=== PATIENT | female | born 1955 | race Caucasian/White ===

== ENCOUNTER 2020-01-28 07:21 | Emergency (ER) | payer OTHER, SELFPAY ==
[2020-01-28 07:31] VITALS: BP 131/113; PULSE 91; RESP 18; TEMP 35.9; O2SAT 98
[2020-01-28 08:23] LABS: Basophils Absolute Auto 0.1 K/mm3 (0.0-0.1); Basophils Percent Auto 0.6 % (0.2-1.2); Eosinophils Absolute Auto 0.4 K/mm3 (0-0.3); Eosinophils Percent Auto 4.8 % (0-4.4); Hematocrit 38.3 % (37.0-47.0); Hemoglobin 12.5 g/dL (12.0-15.0); Immature Granulocyte Absolute 0.06 K/mm3 (0.00-0.031); Immature Granulocyte Percent A 0.7 % (0-0.5); Lymphocytes Absolute Auto 2.38 K/mm3 (0.9-3.2); Lymphocytes Percent Auto 29.5 % (18.3-44.2); Mean Corpuscular HGB Conc 32.6 g/dl (32-36); Mean Corpuscular Hemoglobin 30.5 pg (26-34); Mean Corpuscular Volume 93.4 fl (80-100); Mean Platelet Volume 9.8 fl (7.4-10.4); Monocytes Absolute Auto 1.2 K/mm3 (0.1-0.6); Monocytes Percent Auto 14.9 % (2.6-8.5); Neutrophils Percent Auto 49.5 % (45.5-73.1); Platelet Count Result 337 k/mm3 (150-375); Red Cell Distribution Width 13.5 % (11.5-14.5); White Blood Count 8.1 K/mm3 (4.5-10.0)
[2020-01-28 08:34] LABS: Anion Gap 9 mmol/L (8-16); Blood Urea Nitrogen 14 mg/dL (7-17); Calcium 9.2 mg/dL (8.4-10.2); Carbon Dioxide 28 mmol/L (22-30); Chloride 102 mmol/L (98-107); Estimated CRCL calculation 86 ml/min; Estimated Glomerular Filt Rate > 60; Glucose 111 mg/dL (65-105); Potassium 3.6 mmol/L (3.4-5.0); Sodium 139 mmol/L (137-145)
[2020-01-28 09:12] VITALS: BP 136/94; PULSE 92; RESP 18; O2SAT 98
--- NOTE | 2020-01-28 09:29 | ED.GENADULT ---
HPI - General Adult General Chief complaint: Skin/Abscess/Foreign Body Stated complaint: Skin Issue Time Seen by Provider: 01/28/20 07:46 Source: patient Mode of arrival: ambulatory Limitations: no limitations History of Present Illness HPI narrative: 64-year-old with a history of hypertension here with complaints of drainage from the mid chest area. Patient states that she had a cyst on her chest wall for last several years however for the past few days it is been red and it burst on its own. She denies any fever or trauma. No other complaints expressed at this time Onset (ago): day(s) (1) Location: chest Severity: mild Pain Consistency: constant Related Data Allergies Allergy/AdvReac Type Severity Reaction Status Date / Time No Known Allergies Allergy Verified 01/02/20 13:14 Review of Systems Review of Systems: All systems reviewed & are unremarkable except as noted in HPI and below Eyes: Eyes: Reports as per HPI Cardiovascular: Cardiovascular: Reports no additional cardiovascular complaints Gastrointestinal: Gastrointestinal: Reports no additional gastrointestinal complaints Musculoskeletal: Musculoskeletal: Reports no additional musculoskeletal complaints Psychiatric: Psychiatric: Reports no additional psychiatric complaints PMFSH Past Medical History Medical History (Updated 01/28/20 @ 09:37 by Kenneth Soriano MD) Arthralgia of left knee Current nicotine use Essential (primary) hypertension Hyperlipidemia Type 2 diabetes mellitus without complications Family History Family History Father Hypertension Cerebrovascular accident Sibling Family history of malignant neoplasm of breast in first degree relative Other Family history of lung cancer Family history of lupus erythematosus Social History Social History Smoking status: Former smoker Tobacco type: cigarettes Second hand tobacco smoke exposure: Yes Smoking end date: 06/18/19 Additional smoking assessment comments: 2.5 ppd prior to quitting. 80 pack-year history Alcohol intake: current Additional living arrangements comments: Lives with in own home Gender identity (if verbalized by the patient): Female Exam Narrative: Exam Narrative: GENERAL: Well-appearing, well-nourished, and in no acute distress. HEAD: Normocephalic, atraumatic. EYES: PERRLA and EOMI. ENT: Nares clear, no rhinorrhea or epistaxis. Mucous membranes moist. NECK: Supple. CHEST: Clear to auscultation. No respiratory distress. ruptured cyst with thick drainage present in the mid chest about 4 cms in diameter , with erythematous skin and induration. HEART: Regular rate and rhythm. No murmur heard. Normal peripheral pulses. EXTREMITIES: Normal range of motion. No edema. SKIN: Warm, dry, no rash. NEURO: No focal deficits. Alert and oriented x3. PSYCH: Normal mood and affect. Course Reevaluation(s) Reevaluation #1: informed pt about her lab work , i advised her to take antibiotic as prescribed , follow with a Surgeon Vital Signs Vital signs: Vital Signs Temperature 35.9 C L 01/28/20 07:31 Pulse Rate 91 01/28/20 07:31 Respiratory Rate 18 01/28/20 07:31 Blood Pressure 131/113 H 01/28/20 07:31 Pulse Oximetry 98 01/28/20 07:31 Temperature 35.9 C L 01/28/20 07:31 Pulse Rate 92 01/28/20 09:12 Respiratory Rate 18 01/28/20 09:12 Blood Pressure 136/94 H 01/28/20 09:12 Pulse Oximetry 98 01/28/20 09:12 Procedures Other Procedure Procedure 1: Other Procedure: i have manually drained the sebaceous material from the cyst . Medical Decision Making Vital Signs Vital Signs: Vital Signs Temperature 35.9 C L 01/28/20 07:31 Pulse Rate 91 01/28/20 07:31 Respiratory Rate 18 01/28/20 07:31 Blood Pressure 131/113 H 01/28/20 07:31 Pulse Oximetry 98 01/28/20 07:31 Temperature 35.9
== END 2020-01-28 09:50 | disposition home or self-care (01) ==
PROVIDERS: Emergency Provider Family Medicine; PCP Family Medicine
DX: L02.213 Cutaneous abscess of chest wall (principal); I10 Essential (primary) hypertension; E78.5 Hyperlipidemia, unspecified; E11.9 Type 2 diabetes mellitus without complications; Z87.891 Personal history of nicotine dependence
CPT/HCPCS: 36415; 80048; 85025; 99283

== ENCOUNTER 2022-04-28 08:22 | Outpatient (CLI) | payer OTHER, SELFPAY ==
[2022-04-28 10:34] LABS: Kit Draw Collected
== END 2022-04-28 08:23 | disposition home or self-care (01) ==
LOC: ANHGOSHLAB 08:24
PROVIDERS: PCP Family Medicine; Visit Provider Nurse Practitioner Family
DX: E11.9 Type 2 diabetes mellitus without complications (principal); E78.5 Hyperlipidemia, unspecified; I10 Essential (primary) hypertension
CPT/HCPCS: 36415

== ENCOUNTER 2022-06-05 07:32 | Outpatient (CLI) | payer OTHER, SELFPAY ==
--- NOTE | ~2022-06-05 | MM_ITS ---
EXAMINATION: MM screening delroy BI w aparna HISTORY: Screening mammogram TECHNIQUE: Craniocaudal and mediolateral oblique 3-D tomosynthesis images were obtained and synthetic 2-D images were generated. CAD analysis was submitted and interpreted. COMPARISON: No prior mammogram is available for comparison at this institution. BREAST PARENCHYMAL COMPOSITION: There are scattered areas of fibroglandular density. FINDINGS: There is no evidence of suspicious mass, calcification, or architectural distortion to sugg est malignancy in either breast. There has been no suspicious interval change. IMPRESSION: 1. No mammographic evidence of malignancy. 2. Recommend routine screening mammography in one year. BI-RADS Category 1: Negative Reviewed, dictated and finalized at location A. ROASTER
--- NOTE | ~2022-06-05 | DEXA_ITS ---
Bone Density Report Name: DEEPAK KENDALL Age: 66 Sex: Female Ethnicity: White Date of : 1955 Indication: postmenopausal; screening for osteoporosis; prior fracture; Referring Provider: BENJAMIN RAMOS Study: Bone densitometry was performed. Exam Date: June 05, 2022 Accession number: [id number] Bone Density: Region BMD T-score Z-score Classification AP Spine(L1-L4) 0.970 -0.7 1.0 Normal Femoral Neck (Left) 0.762 -0.8 0.7 Normal Total Hip (Left) 0.959 0.1 1.4 Normal Femoral Neck (Right) 0.789 -0.5 1.0 Normal Total Hip (Right) 0.955 0.1 1.3 Normal Total Hip Mean 0.957 0.1 1.4 Normal World Health Organization criteria for BMD impression classify patients as: Normal (T-score at or above -1.0), Osteopenia (T-score between -1.0 and -2.5), or Osteoporosis (T-score at or below -2.5). 10-year Fracture Risk: FRAX not reported because: All T-scores for Spine Total, Hip Total, Femoral Neck at or above -1.0 Clinical Information Provided by Patient: Has had a low trauma fracture Patient maximum height was 66.5 Menopause Age: 57 No regular weight bearing exercise Does not regularly consume dairy products Drinks caffeinated beverages Onset of menses at age 14 Number of children 2 Impression: The patient has normal bone mass. The patient has risk factors, including: previous fracture. Discussion: BONE DENSITY IS ABOVE THE MINIMUM DESIRABLE LEVEL AT ALL SKELETAL SITES TESTED. This patient?s bone mineral density is above the minimum desirable level (T-score -1.0 or better) at all sites measured. The patient should follow a healthful lifestyle (good nutrition with adequate calcium and vitamin D, and appropriate weight-bearing exercise). Follow-Up: Consider repeating this study in 5 years or sooner if there is some new clinical indication. Reported by: MARSHA on 06/05/2022 7:58:00 AM. Reviewed, dictated and finalized at location Allison CUNHA
== END 2022-06-05 07:33 | disposition home or self-care (01) ==
LOC: ANHIMG 07:33
PROVIDERS: PCP Family Medicine; Visit Provider Nurse Practitioner Family
DX: Z12.31 Encounter for screening mammogram for malignant neoplasm of breast (principal); Z78.0 Asymptomatic menopausal state
CPT/HCPCS: 77063; 77067; 77080

== ENCOUNTER 2022-06-09 00:24 | Day surgery (SDC) | payer OTHER, SELFPAY ==
[2022-05-27 12:27] VITALS: BMI 30.9
--- NOTE | 2022-06-08 15:48 | WPDANESEPPF ---
Anes - Initial Pre Proc Eval Procedure: Operation Date: 06/09/22 09:00 Proposed Procedures p Colonoscopy - Naveen Van MD Date/Time: 06/08/22 15:48 Surgeon: Naveen Van MD Pre Op Diagnosis: other fecal abnormalities Patient Data Age: 66 Gender: F Height: 1.68 m Weight: 87 kg Allergies Allergy/AdvReac Type Severity Reaction Status Date / Time No Known Allergies Allergy Verified 06/09/22 07:42 Home Medications Medication Instructions Recorded Confirmed Type nebivolol 10 mg tablet (Bystolic) 5 mg PO DAILY 10/30/21 05/27/22 History triamterene 37.5 1 cap PO DAILY #90 caps 12/15/21 05/27/22 Rx mg-hydrochlorothiazide 25 mg capsule omeprazole 20 mg capsule,delayed 20 mg PO DAILY #90 caps 04/28/22 05/27/22 Rx release atorvastatin 40 mg tablet 40 mg PO QHS #90 tabs 05/14/22 05/27/22 Rx Patient hx anesthesia problems: none Family hx anesthesia problems: none Results Review: All pre-operative results and documents have been reviewed as part of the pre-operative evaluation. [facility] Past Medical History Medical History (Updated 05/14/22 @ 09:24 by Flakita Alonso NP) Arthralgia of left knee Elevated fasting glucose Essential (primary) hypertension GERD without esophagitis History of tobacco use 80 pack-year smoking hx Hyperlipidemia Type 2 diabetes mellitus without complications Family History Family History Father Hypertension Cerebrovascular accident Sibling Family history of malignant neoplasm of breast in first degree relative Other Family history of lung cancer Family history of lupus erythematosus Social History Social History (Updated 04/28/22 @ 07:50 by Valerie Soares CMA) Smoking packs per day: 2 Smoking cigarettes per day: 40.0 Years smoked: 40 Smoking pack-years: 80.00 Smoking status: Former smoker Tobacco type: cigarettes Second hand tobacco smoke exposure: Yes Smoking end date: 06/18/19 Additional smoking assessment comments: 2.5 ppd prior to quitting. 80 pack-year history Alcohol intake: current Alcohol use details: 2 drinks a day Lack of Transportation: No Lack of Food: Never True Current Housing: I Have Housing Concerned About Future Housing: No Difficulty Paying Gas/Electric Bills: No Difficulty Paying for Meds: No Currently Unemployed: No Education: High School Diploma/GED Difficulty w/ Childcare or Family Care: No Living arrangements: with family Additional living arrangements comments: Lives with in own home Gender identity (if verbalized by the patient): Female Spiritual care concerns: No Anes - Eval Final PreProcedure Day of Procedure 06/08/22 15:48 Patient weight: obese Heart: regular rate and rhythm Lungs: clear to auscultation Airway: Mallampati scale class II Neurological: alert and oriented Last oral intake: >/= 8 hours ASA classification: III Emergent: no Anesthetic plan: proceed Anesthesia type and monitoring: general GIVS and standard monitoring Results Review: All pre-operative results and documents have been reviewed as part of the pre-operative evaluation. Informed Consent: The patient's anesthetic plan and its attendant risks and benefits were discussed with the patient/family/POA. Questions were solicited and answers provided to the satisfaction of the patient/family/POA.
[2022-06-09 07:43] VITALS: BP 145/63; PULSE 74; RESP 19; TEMP 36.1; O2SAT 96
[2022-06-09] MEDS: LACTATED RINGERS 1,000 ML 150 ML IV CONT (07:58)
--- NOTE | 2022-06-09 08:42 | PM.HPGS ---
History of Present Illness History of Present Illness Consent: Risks, benefits, and alternatives have been discussed and questions answered. Patient agrees to proceed with procedure. Chief complaint: other fecal abnormalities Narrative: Crystal Waterman is a 66 year old female here for first colonoscopy, had + cologuard Review of Systems Constitutional: Constitutional: Denies headache(s) and Denies weakness Eyes: Eyes: Denies blurry vision ENT: Reports Normal hearing present, Denies headache(s) and Denies neck pain Cardiovascular: Cardiovascular: Denies chest pain and Denies dyspnea Respiratory: Respiratory: Denies dyspnea Gastrointestinal: Gastrointestinal: Reports no additional gastrointestinal complaints Genitourinary: Genitourinary: Denies dysuria Musculoskeletal: Musculoskeletal: Denies neck pain Integumentary/Breasts: Skin/Breast: Denies dry skin Neurologic: Reports Normal hearing present, Denies headache(s) and Denies weakness Psychiatric: Psychiatric: Denies anxiety Endocrine: Endocrine: Denies change in body appearance Hematologic/Lymphatic: Hematologic/Lymphatic: Denies easy bleeding Allergic/Immunologic: Allergic/Immunologic: Denies urticaria PMFSH Past Medical History Medical History (Updated 05/14/22 @ 09:24 by Flakita Alonso NP) Arthralgia of left knee Elevated fasting glucose Essential (primary) hypertension GERD without esophagitis History of tobacco use 80 pack-year smoking hx Hyperlipidemia Type 2 diabetes mellitus without complications Family History Family History Father Hypertension Cerebrovascular accident Sibling Family history of malignant neoplasm of breast in first degree relative Other Family history of lung cancer Family history of lupus erythematosus Social History Social History (Updated 04/28/22 @ 07:50 by Valerie Soares CMA) Smoking packs per day: 2 Smoking cigarettes per day: 40.0 Years smoked: 40 Smoking pack-years: 80.00 Smoking status: Former smoker Tobacco type: cigarettes Second hand tobacco smoke exposure: Yes Smoking end date: 06/18/19 Additional smoking assessment comments: 2.5 ppd prior to quitting. 80 pack-year history Alcohol intake: current Alcohol use details: 2 drinks a day Lack of Transportation: No Lack of Food: Never True Current Housing: I Have Housing Concerned About Future Housing: No Difficulty Paying Gas/Electric Bills: No Difficulty Paying for Meds: No Currently Unemployed: No Education: High School Diploma/GED Difficulty w/ Childcare or Family Care: No Living arrangements: with family Additional living arrangements comments: Lives with in own home Gender identity (if verbalized by the patient): Female Spiritual care concerns: No Meds Home Medications and Allergies Home Medications Medication Instructions Recorded Confirmed Type nebivolol 10 mg tablet (Bystolic) 5 mg PO DAILY 10/30/21 05/27/22 History triamterene 37.5 1 cap PO DAILY #90 caps 12/15/21 05/27/22 Rx mg-hydrochlorothiazide 25 mg capsule omeprazole 20 mg capsule,delayed 20 mg PO DAILY #90 caps 04/28/22 05/27/22 Rx release atorvastatin 40 mg tablet 40 mg PO QHS #90 tabs 05/14/22 05/27/22 Rx Allergies Allergy/AdvReac Type Severity Reaction Status Date / Time No Known Allergies Allergy Verified 06/09/22 07:42 Vital Signs Vital Signs - 24 hr 06/09/22 07:43 Temperature 96.9 F L Pulse Rate 74 Respiratory Rate 19 Blood Pressure 145/63 H Pulse Oximetry 96 Oxygen Delivery Room Air Exam Const: General: comfortable and no acute distress HENMT: Face/Nose/Sinus: Normal nares present Eyes: General: appearance normal, both eyes and all related structures Neck: Neck: no JVD Resp: Auscultation: clear to auscultation bilaterally Cardio: Rate: regular rate Rhythm: regular rhythm GI: Inspection: non-dis
[2022-06-09 08:59] VITALS: BP 82/41; PULSE 70; RESP 17; O2SAT 97
[2022-06-09 09:09] VITALS: BP 102/49; PULSE 64; RESP 22; O2SAT 100
[2022-06-09 09:19] VITALS: BP 127/59; PULSE 60; RESP 17; O2SAT 100
== END 2022-06-09 09:22 | disposition home or self-care (01) ==
PROVIDERS: PCP Family Medicine; Visit Provider Internal Medicine Gastroenterology
PROC: 0DJD8ZZ Inspection of Lower Intestinal Tract, Via Natural or Artificial Opening Endoscopic (ICD-10-PCS; CPT 45378; principal; 2022-06-09 09:00)
DX: R19.5 Other fecal abnormalities (principal); D12.2 Benign neoplasm of ascending colon; D12.5 Benign neoplasm of sigmoid colon; K57.30 Diverticulosis of large intestine without perforation or abscess without bleeding; K64.8 Other hemorrhoids; I10 Essential (primary) hypertension; K21.9 Gastro-esophageal reflux disease without esophagitis; E78.5 Hyperlipidemia, unspecified; E11.9 Type 2 diabetes mellitus without complications; Z87.891 Personal history of nicotine dependence; E66.9 Obesity, unspecified; Z68.30 Body mass index [BMI] 30.0-30.9, adult
CPT/HCPCS: 45385; 88305; J2704; J7120

== ENCOUNTER 2022-10-27 09:06 | Outpatient (CLI) | payer MEDICARE, SELFPAY ==
[2022-10-27 19:39] LABS: Basophils Absolute Auto 0.1 K/mm3 (0.0-0.1); Basophils Percent Auto 1.1 % (0.2-1.2); Eosinophils Absolute Auto 0.2 K/mm3 (0-0.3); Eosinophils Percent Auto 2.2 % (0-4.4); Hematocrit 39.1 % (37.0-47.0); Hemoglobin 12.7 g/dL (12.0-15.0); Immature Granulocyte Absolute 0.03 K/mm3 (0.00-0.031); Immature Granulocyte Percent A 0.4 % (0-0.5); Lymphocytes Absolute Auto 1.99 K/mm3 (0.9-3.2); Lymphocytes Percent Auto 27.4 % (18.3-44.2); Mean Corpuscular HGB Conc 32.5 g/dl (32-36); Mean Corpuscular Hemoglobin 32.2 pg (26-34); Mean Corpuscular Volume 99.2 fl (80-100); Mean Platelet Volume 9.1 fl (7.4-10.4); Monocytes Absolute Auto 0.9 K/mm3 (0.1-0.6); Neutrophils Absolute Auto 4.1 K/mm3 (1.3-6.7); Neutrophils Percent Auto 55.9 % (45.5-73.1); Platelet Count Result 351 k/mm3 (150-375); Red Blood Count 3.94 M/mm3 (4.2-5.4); Red Cell Distribution Width 13.9 % (11.5-14.5); White Blood Count 7.3 K/mm3 (4.5-10.0)
[2022-10-27 20:43] LABS: Alanine Aminotransferase 25 U/L (6-35); Albumin Level 4.2 g/dL (3.5-5.1); Alkaline Phosphatase 54 U/L (38-126); Anion Gap 2 mmol/L (8-16); Aspartate Amino Transferase 44 U/L (14-36); Bilirubin,Total 0.6 mg/dL (0.2-1.3); Blood Urea Nitrogen 12 mg/dL (7-17); Calcium 8.9 mg/dL (8.4-10.2); Carbon Dioxide 32 mmol/L (22-30); Chloride 100 mmol/L (98-107); Cholesterol 157 mg/dL (0-200); Estimated Glomerular Filt Rate > 60; Glucose 88 mg/dL (65-110); HDL Direct 56 mg/dL; Potassium 3.9 mmol/L (3.4-5.0); Sodium 134 mmol/L (137-145); Triglycerides 62 mg/dL (<150)
[2022-10-27 20:54] LABS: LDL Cholesterol Direct 76 mg/dL
[2022-10-27 21:23] LABS: Hemoglobin A1C 5.3 % (<5.7)
== END 2022-10-27 09:07 | disposition home or self-care (01) ==
LOC: ANHGOSHLAB 09:10
PROVIDERS: PCP Family Medicine; Visit Provider Nurse Practitioner Family
DX: E11.9 Type 2 diabetes mellitus without complications (principal); E78.5 Hyperlipidemia, unspecified; I10 Essential (primary) hypertension
CPT/HCPCS: 36415; 80053; 80061; 83036; 85025

== ENCOUNTER 2023-05-04 08:16 | Outpatient (CLI) | payer MEDICARE, SELFPAY ==
[2023-05-04 19:57] LABS: Alanine Aminotransferase 20 U/L (6-35); Albumin Level 4.4 g/dL (3.5-5.1); Alkaline Phosphatase 75 U/L (38-126); Anion Gap 10 mmol/L (8-16); Aspartate Amino Transferase 46 U/L (14-36); Basophils Absolute Auto 0.1 K/mm3 (0.0-0.1); Basophils Percent Auto 0.7 % (0.2-1.2); Bilirubin,Total 0.7 mg/dL (0.2-1.3); Blood Urea Nitrogen 6 mg/dL (7-17); Calcium 9.1 mg/dL (8.4-10.2); Carbon Dioxide 27 mmol/L (22-30); Chloride 95 mmol/L (98-107); Cholesterol 157 mg/dL (0-200); Eosinophils Absolute Auto 0.2 K/mm3 (0-0.3); Estimated Glomerular Filt Rate > 60; Glucose 85 mg/dL (65-110); HDL Direct 70 mg/dL; Hematocrit 40.6 % (37.0-47.0); Hemoglobin 13.3 g/dL (12.0-15.0); Immature Granulocyte Absolute 0.04 K/mm3 (0.00-0.031); Immature Granulocyte Percent A 0.5 % (0-0.5); Lymphocytes Absolute Auto 1.37 K/mm3 (0.9-3.2); Lymphocytes Percent Auto 15.9 % (18.3-44.2); Mean Corpuscular HGB Conc 32.8 g/dl (32-36); Mean Corpuscular Hemoglobin 31.5 pg (26-34); Mean Corpuscular Volume 96.2 fl (80-100); Monocytes Absolute Auto 0.8 K/mm3 (0.1-0.6); Monocytes Percent Auto 8.9 % (2.6-8.5); Neutrophils Absolute Auto 6.2 K/mm3 (1.3-6.7); Platelet Count Result 318 k/mm3 (150-375); Potassium 3.6 mmol/L (3.4-5.0); Red Blood Count 4.22 M/mm3 (4.2-5.4); Red Cell Distribution Width 14.2 % (11.5-14.5); Sodium 132 mmol/L (137-145); Triglycerides 98 mg/dL (<150); White Blood Count 8.6 K/mm3 (4.5-10.0)
[2023-05-04 20:13] LABS: LDL Cholesterol Direct 73 mg/dL
[2023-05-04 20:33] LABS: Hemoglobin A1C 5.5 % (<5.7)
[2023-05-07 23:57] LABS: Vitamin D 1,25 (OH)2 Total 20 pg/mL (18-72); Vitamin D2 1,25 (OH)2 <8 pg/mL; Vitamin D3 1,25 (OH)2 20 pg/mL
== END 2023-05-04 08:17 | disposition home or self-care (01) ==
LOC: ANHGOSHLAB 08:18
PROVIDERS: PCP Family Medicine; Visit Provider Nurse Practitioner Family
DX: E55.9 Vitamin D deficiency, unspecified (principal); I10 Essential (primary) hypertension; E11.9 Type 2 diabetes mellitus without complications
CPT/HCPCS: 36415; 80053; 80061; 82652; 83036; 84443; 85025

== ENCOUNTER 2023-07-19 07:52 | Outpatient (CLI) | payer MEDICARE, SELFPAY ==
--- NOTE | ~2023-07-19 | MM_ITS ---
EXAMINATION: MM screening delroy BI w aparna HISTORY: Screening TECHNIQUE: Craniocaudal and mediolateral oblique 3-D tomosynthesis images were obtained and synthetic 2-D images were generated. CAD analysis was submitted and interpreted. COMPARISON: 06/05/2022 BREAST PARENCHYMAL COMPOSITION: There are scattered areas of fibroglandular density. FINDINGS: There is no evidence of suspicious mass, calcification, or architectural distortion to sugg est malignancy in either breast. There has been no suspicious interval change. IMPRESSION: 1. No mammographic evidence of malignancy. 2. Recommend routine screening mammography in one year. BI-RADS Category 1: Negative Reviewed, dictated and finalized at location A.
== END 2023-07-19 07:53 | disposition home or self-care (01) ==
LOC: ANHIMG 07:55
PROVIDERS: PCP Family Medicine; Visit Provider Nurse Practitioner Family
DX: Z12.31 Encounter for screening mammogram for malignant neoplasm of breast (principal)
CPT/HCPCS: 77063; 77067

== ENCOUNTER 2024-01-05 09:43 | Observation (INO) | payer MEDICARE, SELFPAY ==
--- NOTE | ~2024-01-05 | XR_ITS ---
EXAMINATION: XR chest 2V DATE: 01/05/2024 10:27 INDICATION: Chest pain. TECHNIQUE: Frontal and lateral views of the chest were obtained. COMPARISON: None. FINDINGS: There is mild atelectasis at left lung base. No pleural effusion or pneumothorax. The heart size is normal. IMPRESSION: 1. Mild atelectasis at left lung base. Reviewed, dictated and finalized at location A.
--- NOTE | ~2024-01-05 | CT_ITS ---
EXAMINATION: CTA chest PE protocol DATE: 01/05/2024 11:28 INDICATION: Chest pain, dyspnea and elevated d-dimer. TECHNIQUE: Computed tomography (CT) pulmonary angiogram of the chest was performed with 100 mL Omnipa que-350 intravenous contrast. Additional 3D reconstructions utilizing coronal maximum intensity proje ction (MIP) were performed. Automated exposure control and iterative reconstruction technique were em ployed. The dose-length product was 383.68 mGy-cm. COMPARISON: None FINDINGS: No pulmonary embolism. Mild emphysema. 6 mm pleural-based nodule in the right lower lobe with eccentr ic calcification. No pneumonia, pulmonary edema or pleural effusion. Heart size is normal. Minimal at herosclerotic coronary artery calcific lesion. No pericardial effusion. Thoracic aorta is normal in c aliber with no dissection. No pathologically enlarged thoracic lymphadenopathy. There is a large thic k-walled fluid collection measuring 6.8 x 5.7 x 7.6 cm which appears to arise from the tail of the pa ncreas and exerts mass effect upon the inferior aspect of the body the stomach. There is small amount of surrounding inflammatory stranding. There is infiltrating soft tissue density extending between t he tail of the pancreas and the left adrenal gland suspicious for primary pancreatic adenocarcinoma. There are eccentric filling defects within the splenic artery which suggests local invasion. There ar e multiple scattered hypodense hepatic masses with poorly defined margins, the largest measuring up t o 2.5 cm in maximal diameter which are suspicious for metastatic disease. IMPRESSION: 1. Mild emphysema. No pulmonary embolism or other acute cardiopulmonary disease. 2. Multiple ill-defined hypodense hepatic masses which are concerning for metastatic disease, potenti ally related to a pancreatic primary with infiltrating soft tissue density extending between the tail of the pancreas and the left adrenal gland and possible direct invasion into the splenic artery. Alt ernatively the change of the pancreas could be related to pancreatitis with liver lesions related to other nonvisualized primary such as a colon cancer. Consider further evaluation with pancreatic neymar col CT of the abdomen and pelvis and ultrasound-guided liver biopsy. 3. Mild inflammatory stranding surrounding a 7.6 cm loculated fluid collection which appears to arise from the tail of the pancreas raising suspicion for acute interstitial pancreatitis with secondary a bscess, walled off necrosis or pseudocyst. Correlate for history of pancreatitis. Reviewed, dictated and finalized at location B. IMPRESSION: 1. Mild emphysema. No pulmonary embolism or other acute cardiopulmonary disease . 2. Multiple ill-defined hypodense hepatic masses which are concerning for metas tatic disease, potentially related to a pancreatic primary with infiltrating so ft tissue density extending between the tail of the pancreas and the left adren al gland and possible direct invasion into the splenic artery. Alternatively th e change of the pancreas could be related to pancreatitis with liver lesions re lated to other nonvisualized primary such as a colon cancer. Consider further e valuation with pancreatic protocol CT of the abdomen and pelvis and ultrasound- guided liver biopsy. 3. Mild inflammatory stranding surrounding a 7.6 cm loculated fluid collection which appears to arise from the tail of the pancreas raising suspicion for acut e interstitial pancreatitis with secondary abscess, walled off necrosis or pseu docyst. Correlate for history of pancreatitis.
--- NOTE | ~2024-01-05 | CT_ITS ---
EXAMINATION: CT abdomen pelvis wo/w con DATE: 01/05/2024 12:40 INDICATION: Pancreatic mass. TECHNIQUE: Computed tomography (CT) of the abdomen and pelvis was performed without and with 100 mL O mnipaque 350 intravenous contrast. Automated exposure control and iterative reconstruction technique were employed. The dose-length product was 1396.15 mGy-cm. COMPARISON: Chest CT 01/05/2024 FINDINGS: The visualized portions of lung bases demonstrate minimal atelectasis. There is mild emphys dylon. No pleural effusion. The heart size is normal. No pericardial effusion. There are greater than 2 0 masses in the liver measuring up to 2.4 cm. The gallbladder and spleen are normal. There is a thick -walled cystic mass involving the tail of the pancreas and abutting the left adrenal gland and stomac h measuring 8.2 x 7.5 cm. There is a 10 mm mass in left adrenal gland. Right adrenal gland is normal. The kidneys are normal. There is diverticulosis of the colon without evidence of diverticulitis. The appendix is normal. 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 The re is severe lower lumbar spondylosis. IMPRESSION: 1. Liver masses, consistent with metastatic disease. Ultrasound-guided core needle biopsy is recommen ded. 2. Cystic mass of the tail of the pancreas. This finding may be primary malignancy or chronic necroti c pancreatitis with walled off necrosis. 3. 10 mm left adrenal mass, which may be an adenoma or metastatic disease. Reviewed, dictated and finalized at location A. IMPRESSION: 1. Liver masses, consistent with metastatic disease. Ultrasound-guided core nee dle biopsy is recommended. 2. Cystic mass of the tail of the pancreas. This finding may be primary maligna ncy or chronic necrotic pancreatitis with walled off necrosis. 3. 10 mm left adrenal mass, which may be an adenoma or metastatic disease.
--- NOTE | ~2024-01-05 | US_ITS ---
EXAMINATION: US biopsy liver DATE: 01/05/2024 15:33 INDICATION: Liver mass. TECHNIQUE: The procedure including the risks, benefits, and alternatives was discussed with the patie nt. Risks discussed included bleeding and infection. The patient understood the risks and agreed to p roceed. The skin overlying the right hepatic lobe was prepped and draped in usual sterile fashion. A nesthetic was administered with 1% lidocaine subcutaneously. An 18 gauge core biopsy needle was then used to obtain 6 core biopsy specimens under continuous sonographic guidance. The entry site was goyo aned and dressed. There were no immediate complications. FINDINGS: Ultrasound images demonstrate the needle in small hypoechoic masses in right hepatic lobe. IMPRESSION: 1. Ultrasound-guided core needle biopsy of small hypoechoic masses in right hepatic lobe. Reviewed, dictated and finalized at location A. IMPRESSION: 1. Ultrasound-guided core needle biopsy of small hypoechoic masses in right hep atic lobe.
[2024-01-05 09:50] VITALS: BP 151/79; PULSE 78; RESP 16; O2SAT 99
--- NOTE | 2024-01-05 09:53 | ECG_ITS ---
Test Date: 2024-01-05 10:06:04 Measurements Intervals [place] Rate: 86 P: 51 KS: 159 QRS: 24 QRSD: 90 T: 43 QT: 361 QTc: 433 Interpretive Statements SINUS RHYTHM LEFT VENTRICULAR HYPERTROPHY BASELINE ARTIFACT- I, II, III, AVR, AVL, AVF, V1-V6 BORDERLINE ECG No previous ECG available for comparison Electronically Signed On 01-05-2024 10:21:28 CDT by Sanchez Murcia D.O.
--- NOTE | 2024-01-05 10:06 | ED.SOB ---
HPI - SOB/Dyspnea General Chief Complaint: Shortness of Breath/Dyspnea <Jamaal Zuñiga PA-C - Last Filed: 01/05/24 14:11> Stated Complaint: left breast pain <Jamaal Zuñiga PA-C - Last Filed: 01/05/24 14:11> Time Seen by Provider: 01/05/24 10:05 <Jamaal Zuñiga PA-C - Last Filed: 01/05/24 14:11> Focused HPI: this is a 68-year-old female with PMH of HLD, history of tobacco use, T2 dm who presents to the ED for chief complaint of chest pain intermittent for the past 8 weeks. States that initially she thought she had pulled a muscle but lately she has had increased pain to the left and right side of the chest. States that the pain is worse with certain movements and feels like it is fine with perfectly still. Endorses associated dyspnea as well. Denies recent illness, fevers, chills, cough, abdominal pain, nausea, vomiting, syncope, numbness, weakness, leg swelling, palpitations, back pain, recent hospitalization. no VTE Hx GENERAL: Well-appearing, well-nourished, and in no acute distress. HEAD: Normocephalic, atraumatic. CHEST: Clear to auscultation. No respiratory distress. HEART: Regular rate and rhythm. NEURO: Alert and oriented x3. Patient screened in triage and initial orders placed. Additional care and disposition to be based upon diagnostic testing and treatment. <NIGEL Suarez Last Filed: 01/05/24 14:11> Related Data Home Medications: Home Medications Medication Instructions Recorded Confirmed cholecalciferol (vitamin D3) 50 50 mcg PO DAILY 09/16/23 01/05/24 mcg (2,000 unit) capsule <NIGEL Suarez Last Filed: 01/05/24 14:11> Allergies/Adverse Reactions: Allergies Allergy/AdvReac Type Severity Reaction Status Date / Time No Known Allergies Allergy Verified 01/05/24 15:49 <NIGEL Suarez Last Filed: 01/05/24 14:11> Review of Systems Review of Systems: All systems as dictated in HPI <NIGEL Suarez Last Filed: 01/05/24 14:11> [facility] Past Medical History Medical History: Medical History (Updated 01/05/24 @ 14:42 by Renetta Gurrola PA-C) Arthritis Elevated fasting glucose Essential (primary) hypertension GERD without esophagitis History of tobacco use 80 pack-year smoking history Hyperlipidemia Type 2 diabetes mellitus without complications Vitamin D deficiency <Jamaal Zuñiga PA-C - Last Filed: 01/05/24 14:11> Surgical History Surgical History: Surgical History (Updated 01/05/24 @ 14:36 by Renetta Gurrola PA-C) History of colonoscopy with polypectomy (05/2022) Diverticulosis, benign colon polyp, internal hemorrhoids. History of dilation and curettage History of epidermal inclusion cyst excision History of tonsillectomy History of tubal ligation <Jamaal Zuñiga PA-C - Last Filed: 01/05/24 14:11> Family History Family History: Family History (Updated 01/05/24 @ 16:00 by Stephanie Leal RN) Father Alcoholism Depression Hypertension Cerebrovascular accident Sibling Family history of malignant neoplasm of breast in first degree relative Mother Thyroid condition Family history of lung cancer Other Family history of lupus erythematosus <Jamaal Zuñiga PA-C - Last Filed: 01/05/24 14:11> Social History Social History: Social History (Updated 01/05/24 @ 14:37 by Renetta Gurrola PA-C) Social History: Surrogate medical decision maker: Del Waterman, spouse. Code status: Full code. Smoking packs per day: 2 Smoking cigarettes per day: 40.0 Years smoked: 40 Smoking pack-years: 80.00 Smoking status: Former smoker Second hand tobacco smoke exposure: Yes Additional smoking assessment comments: 2.5 ppd prior to quitting. 80 pack-year history Alcohol intake: current Drinks per week: 15 Alcohol use details: 2 drinks a day Substance use: never Other substance usage details: does not drink more than 3 whiskey shots a day Do You Feel Safe in your H
[2024-01-05 10:08] LABS: Basophils Absolute Auto 0.1 K/mm3 (0.0-0.1); Basophils Percent Auto 0.7 % (0.2-1.2); Eosinophils Absolute Auto 0.3 K/mm3 (0-0.3); Eosinophils Percent Auto 2.2 % (0-4.4); Hematocrit 40.8 % (37.0-47.0); Hemoglobin 13.7 g/dL (12.0-15.0); Immature Granulocyte Absolute 0.04 K/mm3 (0.00-0.031); Immature Granulocyte Percent A 0.3 % (0-0.5); Lymphocytes Absolute Auto 1.72 K/mm3 (0.9-3.2); Lymphocytes Percent Auto 14.5 % (18.3-44.2); Mean Corpuscular HGB Conc 33.6 g/dl (32-36); Mean Corpuscular Hemoglobin 30.3 pg (26-34); Mean Corpuscular Volume 90.3 fl (80-100); Mean Platelet Volume 8.7 fl (7.4-10.4); Monocytes Absolute Auto 1.7 K/mm3 (0.1-0.6); Monocytes Percent Auto 14.2 % (2.6-8.5); Neutrophils Absolute Auto 8.1 K/mm3 (1.3-6.7); Neutrophils Percent Auto 68.1 % (45.5-73.1); Platelet Count Result 327 k/mm3 (150-375); Red Blood Count 4.52 M/mm3 (4.2-5.4); Red Cell Distribution Width 13.8 % (11.5-14.5); White Blood Count 11.9 K/mm3 (4.5-10.0)
[2024-01-05 10:29] LABS: Troponin I < 0.012 ng/mL (0.000-0.034)
[2024-01-05 10:30] LABS: INR 1.1; Prothrombin Time 14.4 Seconds (11.1-14.7)
[2024-01-05 10:31] LABS: Partial Thromboplastin Time 23.2 Seconds (22.3-36.8)
[2024-01-05 10:40] LABS: Alanine Aminotransferase 24 U/L (6-35); Albumin Level 4.9 g/dL (3.5-5.1); Alkaline Phosphatase 159 U/L (38-126); Anion Gap 12 mmol/L (4-12); Aspartate Amino Transferase 39 U/L (14-36); Bilirubin,Total 1.1 mg/dL (0.2-1.3); Blood Urea Nitrogen 9 mg/dL (7-17); Calcium 9.8 mg/dL (8.4-10.2); Carbon Dioxide 30 mmol/L (22-30); Chloride 85 mmol/L (98-107); Estimated CRCL calculation 85 ml/min; Estimated Glomerular Filt Rate > 60; Glucose 105 mg/dL (65-110); Potassium 3.9 mmol/L (3.4-5.0); Sodium 127 mmol/L (137-145)
[2024-01-05 10:41] LABS: Influenza A QL RT-PCR Negative (Negative); Influenza B QL RT-PCR Negative (Negative); RSV RNA, RT-PCR Negative (Negative); SARS-CoV-2 RNA PCR Negative (Negative)
[2024-01-05 10:58] LABS: D Dimer > 20.00 ug/mL (<0.48)
[2024-01-05 11:03] VITALS: BP 132/77; PULSE 82; RESP 17; O2SAT 100
[2024-01-05 12:12] LABS: Lipase 63 U/L (23-300)
[2024-01-05 13:54] VITALS: BP 139/84; PULSE 85; RESP 14; TEMP 36.9; O2SAT 98
--- NOTE | 2024-01-05 14:30 | PM.IMHP ---
H&P: HPI History of Present Illness Date/Time: 01/05/24 16:00 Chief Complaint: Chest and abdominal pain. Narrative: This is a very pleasant 68-year-old female with hypertension hyperlipidemia, prediabetes, diverticulitis, and gastroesophageal reflux disease who presented to the emergency department via private vehicle for evaluation of chest and abdominal pain. The patient provides the following history. For couple of months she has had intermittent left mid and upper quadrant which she describes as sharp and shooting in nature. Initially she attributed her symptoms to diverticulitis and tried to adjust her diet without much relief. As time has gone on she has developed pain up into the lower chest and across to the right side of the abdomen as well. She has not been taking anything for the pain because she does not like to take medications and it has been tolerable. Her appetite has not been great however she denies nausea and vomiting. She has lost about 25 lb but that has been over the last 2 years which she attributes to the fact that she is constantly on the go caring for her ill . She has not had diarrhea and in fact reports having constipation since having a colonoscopy in spring 2022. She denies cold and flu symptoms, fever, chills, pleuritic pain, edema, calf pain, abdominal pain, nausea, vomiting, diarrhea, and dysuria. No history of pancreatitis, gallbladder disease, pulmonary embolism, or peptic ulcers. In the ED: Vital signs were stable on arrival. Labs were significant for a WBC count of 11.9, D-dimer greater than 20, sodium 127, chloride 85, creatinine 0.60, AST 39, ALT 159, troponin less than 0.012. She tested negative for influenza, RSV, and COVID. Chest x-ray showed mild atelectasis at the left lung base. Chest CTA was negative for pulmonary embolism or acute cardiopulmonary disease but showed mild emphysema, ill-defined hepatic masses, and a 7.6 cm loculated fluid collection which appears to arise from the tail of the pancreas. Subsequent CT of the abdomen pelvis showed multiple liver masses consistent with metastatic disease, a cystic mass of the tail of the pancreas, and 10 mm left adrenal mass. She is being admitted in this setting for liver biopsy. Review of Systems Review of Systems: 12 systems were reviewed and are negative except for as per HPI. [facility] Past Medical History Medical History Arthritis Elevated fasting glucose Essential (primary) hypertension GERD without esophagitis History of tobacco use 80 pack-year smoking history Hyperlipidemia Type 2 diabetes mellitus without complications Vitamin D deficiency Surgical History Surgical History History of colonoscopy with polypectomy (05/2022) Diverticulosis, benign colon polyp, internal hemorrhoids. History of dilation and curettage History of epidermal inclusion cyst excision History of tonsillectomy History of tubal ligation Family History Family History Father Alcoholism Depression Hypertension Cerebrovascular accident Sibling Family history of malignant neoplasm of breast in first degree relative Mother Thyroid condition Family history of lung cancer Other Family history of lupus erythematosus Social History Social History Social History: Surrogate medical decision maker: Del Waterman, spouse. Code status: Full code. Smoking packs per day: 2 Smoking cigarettes per day: 40.0 Years smoked: 40 Smoking pack-years: 80.00 Smoking status: Former smoker Second hand tobacco smoke exposure: Yes Additional smoking assessment comments: 2.5 ppd prior to quitting. 80 pack-year history Alcohol intake: current Drinks per week: 15 Alcohol use details: 2 drinks a day Substance use: never Oth
--- NOTE | 2024-01-05 14:35 | ADMGEN ---
This patient, Crystal Waterman, was admitted to Medical Room 346-01. Patient/family oriented to hospital policies and general routines including ID bracelet, bed and alarms, visiting hours, pain management, procedures, bathroom and other care routines, personal items, smoking policy, room service/diet, and visiting hours. Information on how to activate the Rapid Response Team has been discussed. Patient/Family are encouraged to report perceived risks to care and to ask questions if they do not understand what they are told or what they should do.
--- NOTE | 2024-01-05 14:40 | PC.NURSE ---
Patient transported to US per wheelchair.
--- NOTE | 2024-01-05 15:28 | PC.NURSE ---
Patient returned from US per wheelchair.
[2024-01-05] MEDS: ACETAMINOPHEN 325 MG TABLET 650 MG PO (16:09)
[2024-01-05 19:35] LABS: Creatinine Urine 109.6 mg/dL
[2024-01-05 19:46] LABS: Urea Random Urine 297 MG/DL
[2024-01-05 19:47] LABS: Sodium Urine Random 27 meq/L
[2024-01-05 20:30] VITALS: BP 142/75; PULSE 83; RESP 20; TEMP 36.4; O2SAT 96
[2024-01-05] MEDS: ATORVASTATIN 40 MG TABLET PO (20:31)
[2024-01-05] MEDS: SODIUM CHLORIDE 0.9% IV 1,000 ML 100 ML IV CONT (22:37)
[2024-01-06] MEDS: ACETAMINOPHEN 325 MG TABLET 650 MG PO ×2 (02:49→11:34)
[2024-01-06 05:28] VITALS: BP 131/76; PULSE 74; RESP 16; TEMP 36.6; O2SAT 95
[2024-01-06 07:06] LABS: Hematocrit 37.5 % (37.0-47.0); Hemoglobin 12.5 g/dL (12.0-15.0); Mean Corpuscular HGB Conc 33.3 g/dl (32-36); Mean Corpuscular Hemoglobin 30.2 pg (26-34); Mean Corpuscular Volume 90.6 fl (80-100); Mean Platelet Volume 8.6 fl (7.4-10.4); Platelet Count Result 289 k/mm3 (150-375); Red Blood Count 4.14 M/mm3 (4.2-5.4); Red Cell Distribution Width 13.7 % (11.5-14.5); White Blood Count 9.5 K/mm3 (4.5-10.0)
[2024-01-06 07:08] LABS: Alanine Aminotransferase 20 U/L (6-35); Albumin Level 4.3 g/dL (3.5-5.1); Alkaline Phosphatase 131 U/L (38-126); Anion Gap 13 mmol/L (4-12); Aspartate Amino Transferase 35 U/L (14-36); Bilirubin,Total 0.9 mg/dL (0.2-1.3); Blood Urea Nitrogen 11 mg/dL (7-17); Calcium 9.3 mg/dL (8.4-10.2); Carbon Dioxide 26 mmol/L (22-30); Chloride 91 mmol/L (98-107); Estimated CRCL calculation 85 ml/min; Estimated Glomerular Filt Rate > 60; Glucose 102 mg/dL (65-110); Magnesium 1.8 mg/dL (1.6-2.3); Potassium 3.6 mmol/L (3.4-5.0); Sodium 130 mmol/L (137-145)
[2024-01-06] MEDS: CHOLECALCIFEROL 1,000 UNITS TABLET 2000 UNITS PO (08:26)
[2024-01-06] MEDS: NEBIVOLOL HCL 5 MG TABLET PO (08:27)
[2024-01-06] MEDS: PANTOPRAZOLE 40 MG TABLET PO (08:27)
--- NOTE | 2024-01-06 08:31 | WPDGICN ---
Assessment and Plan Assessment and plan (1) Cystic mass of pancreas: Code(s): K86.2 - Cyst of pancreas Status: Acute Assessment and Plan: 1. Pancreatic mass with liver metastases: Patient admitted for intermittent chest pain and she was found incidentally on a CT of the abdomen pelvis to have cystic lesion at the tail of the pancreas measuring 8.2 x 7.5 cm with numerous , greater than 20, liver masses consistent with metastatic disease. There was concern on imaging for possible chronic necrotic pancreatitis but due to lipase and not having any direct epigastric abdominal pain likely not the cause. Liver biopsy completed this morning and results are still pending. Oncology has been consulted as well. - await liver biopsy results and further recommendations per Dr. 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 further recommendation per Dr. Fuchs. (5) Gastric varices: Code(s): I86.4 - Gastric varices Status: Acute Assessment and Plan: -Gastric varices noted on CT scan, likely secondary to malignancy and chronic splenic occlusion. -hgb and hct within normal ranges. Denies any hematemesis/melena. -She may need EGD at some point to assess varices but this can be done as outpatient. She can follow up in our office after discharge. (6) Elevated LFTs: Code(s): R79.89 - Other specified abnormal findings of blood chemistry Status: Acute (7) Alcohol use: Code(s): Z78.9 - Other specified health status Status: Acute (8) GERD without esophagitis: Code(s): K21.9 - Gastro-esophageal reflux disease without esophagitis Status: Acute (9) Constipation: Code(s): K59.00 - Constipation, unspecified Status: Acute Plan This report may have been done utilizing a voice recognition system. Attempts have been made to correct errors. However, there may be uncorrected grammatical, spelling, and recognition errors present. GI Consult Note Consult date/time: 01/06/24 08:31 Reason for consult: pancreatic cystic mass HPI: Crystal Waterman is a 68 year old female with a past medical surgical history of GERD, hyperlipidemia, hypertension, arthritis, pre-diabetes, and diverticulitis. She presented to [facility] yesterday for complaints of chest pain intermittently for the past 8 weeks with associated dyspnea. Chest x-ray showed mild atelectasis at the left lung base. Chest CTA was negative for pulmonary embolism or acute cardiopulmonary disease but showed mild emphysema, ill-defined hepatic masses, and a 7.6 cm loculated fluid collection which appears to arise from the tail of the pancreas. Subsequent CT of abdomen and pelvis revealed 1). Liver masses, consistent with metastatic disease. 2. Cystic mass of the tail of the pancreas. This finding may be primary malignancy or chronic necrotic pancreatitis with walled off necrosis and 3). 10 mm left adrenal mass, which may be an adenoma or metastatic disease. Labs on admission were significant for a WBC count of 11.9, Lipase 63, total bili 0.9, AST 39, ALT 159, D-dimer greater than 20, sodium 127, chloride 85, creatinine 0.60, troponin less than 0.012. Liver biopsy performed this AM with results still pending. She reports drinking 3 whiskey's a day, spaced out, for the past 4-5 years. Each drink is approximately one shot mixed with water in a 32-ounce cup of water. A prior history of 80 pack per year smoking history but quit in 2
[2024-01-06 09:40] LABS: Carcinoembryonic Antigen 13.9 ng/mL (0.0-3.0)
--- NOTE | 2024-01-06 10:06 | PM.IMPN ---
Progress Note: A&P Assessment and Plan (1) Cystic mass of pancreas: Code(s): K86.2 - Cyst of pancreas Status: Acute Assessment and Plan: 01/06/24: Chest CTA was negative for PE, showed multiple ill defined hypodense hepatic masses which are concerning for metastatic disease potentially related to a pancreatic primary with infiltrating soft tissue density extending between the tail of the pancreas and the left adrenal gland and possible direct invasion into the splenic artery, mild inflammatory stranding surrounding is 7.6 cm loculated fluid collection which appears to arise from the tail of the pancreas raising suspicion for acute interstitial pancreatitis with secondary abscess, walled off necrosis or pseudocyst. CTA of abdomen/pelvis with and without contrast showed liver masses consistent with metastatic disease, ultrasound-guided core needle biopsy is recommended, cystic mass of tail of the pancreas that may be primary malignancy or chronic necrotic pancreatitis with walled-off necrosis, 10 mm left adrenal mass which may be an adenoma are metastatic disease Ultrasound-guided liver biopsy performed today GI consulted and following Oncology/hematology consulted and following (2) Liver masses: Code(s): R16.0 - Hepatomegaly, not elsewhere classified Status: Acute Assessment and Plan: See above (3) Hyponatremia: Code(s): E87.1 - Hypo-osmolality and hyponatremia Status: Acute Assessment and Plan: 01/06/24: Initial sodium 127 Now up to 130 today Serum osmolarity, urine osmolarity, urine sodium pending Hold triamterene-hydrochlorothiazide (4) Essential (primary) hypertension: Code(s): I10 - Essential (primary) hypertension Status: Chronic Assessment and Plan: 01/06/24: Blood pressure ranging 117/52 to 142/75 Continue Bystolic (5) GERD without esophagitis: Code(s): K21.9 - Gastro-esophageal reflux disease without esophagitis Status: Acute Assessment and Plan: 01/06/24: Continue Protonix (6) Hyperlipidemia: Qualifiers: Hyperlipidemia type: unspecified Qualified Code(s): E78.5 - Hyperlipidemia, unspecified Code(s): E78.5 - Hyperlipidemia, unspecified Status: Chronic Assessment and Plan: 01/06/24: Continue atorvastatin Time Spent With Patient Time with patient: Greater than 35 minutes Subjective Date/time seen: 01/06/24 10:06 Interval history: Interval history: This is a 68-year-old female who presented to the hospital on 01/05/2024 with chest pain and abdominal pain. Workup in the hospital included a chest x-ray which was negative, showed mild atelectasis at left lung base. Chest CTA showed mild emphysema, no PE, multiple ill-defined hypodense hepatic masses which are concerning for metastatic disease potentially related to pancreatic primary with infiltrating soft tissue density extending between the tail of the pancreas in the left adrenal gland and possible direct invasion into the splenic artery., mild inflammatory stranding surrounding a 7.6 cm loculated fluid collection which appears to arise from the tail of the pancreas raising suspicion for acute interstitial pancreatitis with secondary abscess, walled off necrosis or pseudocyst. Abdomen/pelvis CT showed liver masses consistent with metastatic disease with recommendation for ultrasound-guided core needle biopsy, cystic mass of the tail of the pancreas which may be due to primary malignancy or chronic necrotic pancreatitis with walled off necrosis, 10 mm left adrenal mass which may be an adenoma are metastatic disease. Ultrasound guided liver biopsy performed. Initial labs shown a white blood cell count of 11.9, D-dimer greater than 20, INR 1.1, sodium 127, chloride 85, AST 39, alk-phos 159, troponin negative, lipase 63, TSH 2.10. Respiratory panel was obtained and negative for influenza a and B, RSV, COVID. EKG obtained showing sinus rhythm w
[2024-01-06 13:40] VITALS: BP 117/52; PULSE 76; RESP 16; TEMP 36.6; O2SAT 95
--- NOTE | 2024-01-06 16:08 | PM.DS ---
DS: Admitting Diagnosis Discharge Date 01/06/24 Admitting Diagnosis Cystic mass of pancreas liver masses hyponatremia essential hypertension hyperlipidemia GERD without esophagus DS: Discharge Diagnosis Discharge Diagnosis (1) Cystic mass of pancreas: Code(s): K86.2 - Cyst of pancreas Status: Acute (2) Liver masses: Code(s): R16.0 - Hepatomegaly, not elsewhere classified Status: Acute (3) Hyponatremia: Code(s): E87.1 - Hypo-osmolality and hyponatremia Status: Acute (4) Essential (primary) hypertension: Code(s): I10 - Essential (primary) hypertension Status: Chronic (5) GERD without esophagitis: Code(s): K21.9 - Gastro-esophageal reflux disease without esophagitis Status: Acute (6) Hyperlipidemia: Qualifiers: Hyperlipidemia type: unspecified Qualified Code(s): E78.5 - Hyperlipidemia, unspecified Code(s): E78.5 - Hyperlipidemia, unspecified Status: Chronic DS: Summary Hospital Course Reason for hospitalization: Cystic mass of pancreas liver masses hyponatremia essential hypertension hyperlipidemia GERD without esophagus Hospital Course: This is a 68-year-old female who presented to the hospital on 01/05/2024 with chest pain and abdominal pain. Workup in the hospital included a chest x-ray which was negative, showed mild atelectasis at left lung base. Chest CTA showed mild emphysema, no PE, multiple ill-defined hypodense hepatic masses which are concerning for metastatic disease potentially related to pancreatic primary with infiltrating soft tissue density extending between the tail of the pancreas in the left adrenal gland and possible direct invasion into the splenic artery, mild inflammatory stranding surrounding a 7.6 cm loculated fluid collection which appears to arise from the tail of the pancreas raising suspicion for acute interstitial pancreatitis with secondary abscess, walled off necrosis or pseudocyst. Abdomen/pelvis CT showed liver masses consistent with metastatic disease with recommendation for ultrasound-guided core needle biopsy, cystic mass of the tail of the pancreas which may be due to primary malignancy or chronic necrotic pancreatitis with walled off necrosis, 10 mm left adrenal mass which may be an adenoma are metastatic disease. Ultrasound guided liver biopsy performed. Initial labs shown a white blood cell count of 11.9, D-dimer greater than 20, INR 1.1, sodium 127, chloride 85, AST 39, alk-phos 159, troponin negative, lipase 63, TSH 2.10. Respiratory panel was obtained and negative for influenza a and B, RSV, COVID. EKG obtained showing sinus rhythm with a rate of 86, QTC 433. Patient was given a dose of Zofran and dilaudid while in the ED. GI was consulted. Of note patient had an colonoscopy performed on 06/09/2022 which showed multiple diverticula in the left colon, 12 mm polyp in the ascending colon, 4 mm polyp in the sigmoid colon, no colitis, few small internal hemorrhoids. Polyps were sent for pathology and came back as tubular adenoma. Patient requesting to go home. Spoke with Dr. Núñez and he would rather see her on an outpatient basis as her pathology is still pending. She is stable for discharge from a medical standpoint. She denies any fever, chills, nausea, vomiting, diarrhea, chest pain, or shortness of breath. She does report epigastric pain intermittently and colicky in nature. Final diagnosis: Cystic mass of pancreas, liver mass, hyponatremia Status at Discharge Cognitive/behavioral status at discharge: Alert and oriented x3 Functional status at discharge: independent ambulation Overall status at discharge: patient is progressing back to baseline Time Spent with Patient Time attestation: Total time spent providing and/or coordinating discharge services: Time spent: Greater than 30 minutes Exam Narrative: General: In no acute distress, well nourished Head: atraumatic, no encephalopat
[2024-01-07 03:59] LABS: CA-125 552 U/mL (<35)
[2024-01-07 12:19] LABS: CA 19-9 1680 U/mL (<34)
[2024-01-07 16:28] LABS: Osmolality, Urine 513 mOsm/kg (50-1200)
[2024-01-11 12:58] LABS: Alpha Fetoprotein Tumor Marker 2.9 ng/mL
== END 2024-01-06 17:30 | disposition home or self-care (01) ==
LOC: ANHED 10:52 → ANH3MED 13:34
PROVIDERS: Emergency Medicine; Nurse Practitioner Family; Physician Assistant; Admitting Provider Internal Medicine; Emergency Provider Physician Assistant; PCP Family Medicine; Visit Provider Internal Medicine
DX: K86.2 Cyst of pancreas (principal); R16.0 Hepatomegaly, not elsewhere classified; C79.9 Secondary malignant neoplasm of unspecified site; I86.4 Gastric varices; R79.89 Other specified abnormal findings of blood chemistry; E87.1 Hypo-osmolality and hyponatremia; E78.5 Hyperlipidemia, unspecified; I10 Essential (primary) hypertension; K21.9 Gastro-esophageal reflux disease without esophagitis; E11.9 Type 2 diabetes mellitus without complications; E55.9 Vitamin D deficiency, unspecified; I82.890 Acute embolism and thrombosis of other specified veins; K59.00 Constipation, unspecified; F10.90 Alcohol use, unspecified, uncomplicated; Z87.891 Personal history of nicotine dependence; Z20.822 Contact with and (suspected) exposure to COVID-19
CPT/HCPCS: 36415; 47000; 71046; 71275; 74178; 76942; 80053; 82105; 82378; 82570; 83690; 83735; 83930; 83935; 84300; 84443; 84484; 84540; 85025; 85027; 85380; 85610; 85730; 86301; 86304; 87637; 88307; 93005; 99285; A9270; G0378; J7030; Q9967

== ENCOUNTER 2024-02-15 02:26 | Inpatient (IN) | payer MEDICARE, SELFPAY ==
[2024-02-15] VITALS (13 sets, daily range): BP systolic 104–126; BP diastolic 63–83; PULSE 66–104; RESP 14–20; TEMP 36.3–36.7; O2SAT 93–100; BMI 24.9
--- NOTE | ~2024-02-15 | US_ITS ---
EXAMINATION: US carotid duplex BI DATE: 02/16/2024 13:58 INDICATION: Left frontal lobe infarct. TECHNIQUE: Grayscale, color Doppler, and pulsed Doppler images of the cervical carotid arteries were obtained. The degree of vessel stenosis is placed in one of the following categories: normal, <50%, 5 0-69%, >=70% but less than near-occlusion, near-occlusion, or total occlusion. Note that percent sten osis relative to normal distal artery lumen diameter is indirectly measured from velocity measurement s as described by Edinson, et al. Radiology 2003; 229:[id number]. COMPARISON: CTA 02/16/2024 FINDINGS: RIGHT: The right common carotid artery (CCA) peak systolic velocity (PSV) is 100 cm/s. The right internal ca rotid artery (ICA) PSV is 67 cm/s. The right ICA end-diastolic velocity (EDV) is 20 cm/s. The right I CA/CCA PSV ratio is 0.8. Grayscale and color Doppler images yield an estimate of <50% diameter reduct ion from plaque in the ICA. There is antegrade flow in the right vertebral artery. LEFT: The left CCA PSV is 63 cm/s. The left ICA PSV is 90 cm/s. The left ICA EDV is 34 cm/s. The left ICA/C CA PSV ratio is 1.7. Grayscale and color Doppler images yield an estimate of <50% diameter reduction from plaque in the ICA. There is antegrade flow in the left vertebral artery. IMPRESSION: 1. <50% stenosis in the right internal carotid artery. 2. <50% stenosis in the left internal carotid artery. Reviewed, dictated and finalized at location B.
--- NOTE | ~2024-02-15 | US_ITS ---
EXAMINATION: US abdomen limited DATE: 02/15/2024 16:56 INDICATION: splenic infarct rule out thrombosis . TECHNIQUE: Grayscale and Doppler ultrasound images of the were obtained. COMPARISON: CT abdomen and pelvis, same date and 01/05/2024. FINDINGS: The spleen measures 10.7 x 5.2 x 4.1 cm. Doppler interrogation demonstrates both venous and arterial color Doppler flow to the spleen. The proximal portal vein is patent. Correlation with the prior CT indicates the visualized venous color Doppler signal is likely due to splenogastric varices, which is confirmed in an older study. There is multifocal narrowing and perhaps slow arterial flow i n the splenic artery as it passes the tail of the pancreas and associated pancreatic tail lesion. 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 Irregular narrowing and possible reduced flow in the splenic artery. Reviewed, dictated and finalized at location K. 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 Irregular narrowing and possible reduce d flow in the splenic artery.
--- NOTE | ~2024-02-15 | XR_ITS ---
Clinical Indication: Shortness of breath PA and lateral views of the chest: Comparison: 01/05/2024 Findings: Right-sided Mediport in place. The lungs are clear, without evidence of focal consolidation or pleural effusion. Cardiomediastinal silhouette is within normal limits. Bones and soft tissues a re unremarkable. Impression: Clear lungs. Right-sided Mediport. Reviewed, dictated and finalized at location . Impression: Clear lungs. Right-sided Mediport.
--- NOTE | ~2024-02-15 | CT_ITS ---
CT of the Abdomen and Pelvis: Indication: Anemia, pancreatic cancer Technique: 2.5 mm axial scans were obtained through the abdomen and pelvis following intravenous adm inistration of 100 cc of Omnipaque 350. Dose reduction technique was used on this scan by utilizing a utomated exposure control and iterative reconstruction technique. The dose-length product (DLP) was 6 24.45 mGy-cm. COMPARISON: 01/05/2024 Findings: Scans through the lung bases demonstrate 2.0 x 1.4 cm left basilar pulmonary nodule (axial image 35). There is a 5 mm right lower lobe pulmonary nodule pleural-based opacity (axial image 8). There is a 3 mm right middle lobe pulmonary nodule (axial image 6).. Innumerable hypodense hepatic lesions are compatible with extensive metastatic disease, with probable increase in size and number of lesions since prior exam. There is a wedge-shaped nonenhancing areas in the spleen, especially the superior aspect, suggestive of splenic infarcts. Large cystic mass or w alled off fluid collection the pancreatic tail is similar to prior exam, extensively abutting the gre ater curvature of the stomach. Questionable subtle underlying hypodense pancreatic tail mass. Stable irregular hypodense mass involving the left adrenal gland, measuring up to approximately 2 cm in maxi mum diameter. The gallbladder, right adrenal gland, and kidneys are within normal limits. There are atherosclerotic calcifications of the aorta. No lymphadenopathy. No bowel obstruction or bowel wall thickening. There is no evidence to suggest acute appendicitis. Images through the pelvis were performed. Urinary bladder unremarkable. No pelvic mass seen. No ascit es. Impression: Acute splenic infarcts, new from prior exam. Large cystic mass or wall or fluid collection the pancreatic tail extensively abutting the greater cu rvature stomach, similar to prior exam. Stable questionable underlying hypodense pancreatic tail mass . Stable irregular mass involving the left adrenal gland, suspicious for metastasis. Interval progression of extensive hepatic metastatic disease, increased number and size of lesions. New 2 cm nodular lesion at the left lung base, suspicious for metastasis. Additional subcentimeter ri ght basilar pulmonary nodules, as above, which could also represent metastatic lesions. Reviewed, dictated and finalized at location M. Impression: Acute splenic infarcts, new from prior exam. Large cystic mass or wall or fluid collection the pancreatic tail extensively a butting the greater curvature stomach, similar to prior exam. Stable questionab le underlying hypodense pancreatic tail mass. Stable irregular mass involving the left adrenal gland, suspicious for metastas is. Interval progression of extensive hepatic metastatic disease, increased number and size of lesions. New 2 cm nodular lesion at the left lung base, suspicious for metastasis. Addit ional subcentimeter right basilar pulmonary nodules, as above, which could also represent metastatic lesions.
--- NOTE | ~2024-02-15 | CT_ITS ---
EXAMINATION: CTA brain carotid DATE: 02/16/2024 13:31 INDICATION: Stroke. TECHNIQUE: Computed tomographic angiography (CTA) of the head was performed with 100 mL Omnipaque-350 intravenous contrast. CTA of the neck was performed with intravenous contrast. Automated exposure co ntrol and iterative reconstruction technique were employed. The dose-length product was 1045.13 mGy-c m. Maximum intensity projection and volume rendered 3D-reconstructions were created by the [employer] st on a separate workstation. COMPARISON: Head CT 02/16/2024, brain MRI 02/16/2024 FINDINGS: HEAD CTA: There are acute infarcts in the bilateral cerebellum and left frontal lobe. There is no int racranial hemorrhage or abnormal mass lesion. The ventricles are normal in size. There are likely vinay nges of ocular lens replacement surgeries. There is a larger codominant. There is no significant sten osis of basilar artery or the posterior cerebral arteries. The posterior cruciate areas are normal. T here is no significant stenosis of intracranial internal carotid or anterior or middle cerebral arter ies. Anterior communicating artery is normal. There is no aneurysm. NECK CTA: There is mild emphysema. There are no pathologically enlarged lymph nodes. There is no sign ificant stenosis of the vertebral arteries. There is plaque in the proximal internal carotid arteries . There is 0% stenosis of the proximal right internal carotid artery relative to normal distal artery lumen diameter (NASCET criteria). There is 0% stenosis of the proximal left internal carotid artery relative to normal distal artery lumen diameter. IMPRESSION: 1. Acute infarcts in the bilateral cerebellum and left frontal lobe. 2. No aneurysm or significant intracranial arterial stenosis. 3. 0% stenosis of the proximal internal carotid arteries relative to normal distal artery lumen diame ters (NASCET criteria). Reviewed, dictated and finalized at location B. IMPRESSION: 1. Acute infarcts in the bilateral cerebellum and left frontal lobe. 2. No aneurysm or significant intracranial arterial stenosis. 3. 0% stenosis of the proximal internal carotid arteries relative to normal dis barb artery lumen diameters (NASCET criteria).
--- NOTE | ~2024-02-15 | XR_ITS ---
Portable chest x-ray Comparison: 02/15/2024 Clinical History: Tube placement Findings: Endotracheal tube and NG tube are in satisfactory positions. Right-sided Mediport in place . Moderate pulmonary edema pattern present. Cardiomediastinal silhouette is stable. Bones and soft t issues are unremarkable. Impression: Support tubes, as above. Moderate pulmonary edema pattern. Reviewed, dictated and finalized at location . Impression: Support tubes, as above. Moderate pulmonary edema pattern.
--- NOTE | ~2024-02-15 | MR_ITS ---
EXAMINATION: MR brain/brain stem wo/w con DATE: 02/16/2024 12:29 INDICATION: Confusion. TECHNIQUE: Magnetic resonance imaging (MRI) of the brain and brainstem was performed without and with 14 mL MultiHance intravenous contrast. COMPARISON: Head CT 02/16/2024 FINDINGS: There are scattered acute infarcts in the bilateral frontal, parietal, temporal, and occipi barb lobes and bilateral cerebellum. There is no intracranial hemorrhage or abnormal mass lesion. The ventricles are normal and symmetric. There are likely changes of ocular lens replacement surgeries. T here is a small right mastoid effusion. The paranasal sinuses are clear. IMPRESSION: 1. Widespread scattered acute infarcts in the cerebrum and cerebellum. Reviewed, dictated and finalized at location B.
--- NOTE | ~2024-02-15 | CT_ITS ---
EXAMINATION: CT abdomen pelvis w con DATE: 02/16/2024 10:59 INDICATION: Abdominal pain. TECHNIQUE: Computed tomography (CT) of the abdomen and pelvis was performed with 100 mL Omnipaque 350 intravenous contrast. Automated exposure control and iterative reconstruction technique were employe d. The dose-length product was 1107.12 mGy-cm. COMPARISON: CT abdomen and pelvis 02/15/2024 FINDINGS: The visualized portions of lung bases demonstrate mild atelectasis. There is a 5 mm nodule at minor fissure likely benign. There is a 7 mm nodule in left lower lobe. No pleural effusion. The h eart size is normal. There is an old infarct involving left ventricular apex and anterior and medial duggan. No pericardial effusion. There are greater than 40 hypodense masses in the liver measuring up to 2.8 cm. There is contrast in the gallbladder, which is normal in size. There are infarcts in the s pleen. There is a 6.2 cm thick-walled cystic mass in the tail of the pancreas with involvement of the left adrenal gland and wall of the stomach. The right adrenal gland is normal. There are cysts in th e kidneys measuring up to 9 mm. There is diverticulosis of the colon without evidence of diverticulit is. There are no dilated loops of bowel. The appendix is normal. There are no pathologically enlarged lymph nodes. There is no free intraperitoneal fluid. There is total occlusion of splenic vein with g astric varices. There is severe lumbar spondylosis. IMPRESSION: 1. Liver masses measuring up to 2.8 cm, worsened from 01/05/2024. Biopsy of a liver mass demonstrated abscess. 2. Worsened splenic infarcts. 3. 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 4. Worsened left lower lobe pulmonary nodule, likely infection. Reviewed, dictated and finalized at location B. IMPRESSION: 1. Liver masses measuring up to 2.8 cm, worsened from 01/05/2024. Biopsy of a li beni mass demonstrated abscess. 2. Worsened splenic infarcts. 3. Thick-walled cystic mass of the pancreatic tail with involvement of the left adrenal gland and stomach wall, most likely contacting necrotic pancreatitis w ith walled off necrosis. 4. Worsened left lower lobe pulmonary nodule, likely infection.
--- NOTE | ~2024-02-15 | CT_ITS ---
EXAMINATION: CT brain wo con DATE: 02/16/2024 10:59 INDICATION: Confusion. TECHNIQUE: Computed tomography (CT) of the head was performed without intravenous contrast. The mA wa s adjusted according to patient size. Iterative reconstruction technique was employed. The dose-lengt h product was 681.00 mGy-cm. COMPARISON: None FINDINGS: There is an infarct in the left frontal lobe. There are infarcts in the right cerebellum. T here is an infarct in left cerebellum. There is no intracranial hemorrhage or abnormal intracranial m ass lesion. The ventricles are normal in size. There are likely changes of ocular lens replacement oakley rgeries. The paranasal sinuses are clear. The mastoid air cells are normal. IMPRESSION: 1. Infarct in left frontal lobe, probably acute. 2. Age-indeterminate infarcts in the cerebellum bilaterally. Reviewed, dictated and finalized at location B.
--- NOTE | 2024-02-15 02:27 | ECG_ITS ---
Test Date: 2024-02-15 02:33:35 Measurements Intervals [place] Rate: 122 P: 59 AK: 173 QRS: 36 QRSD: 94 T: 40 QT: 306 QTc: 437 Interpretive Statements SINUS TACHYCARDIA WITH OCCASIONAL VENTRICULAR PREMATURE COMPLEXES ABNORMAL RHYTHM ECG Compared to ECG 01/05/2024 10:06:04 SINUS TACHYCARDIA NOW PRESENT Electronically Signed On 02-15-2024 09:44:37 CDT by Chino Plaza M.D.
[2024-02-15 02:59] LABS: Basophils Absolute Auto 0.1 K/mm3 (0.0-0.1); Basophils Percent Auto 0.5 % (0.2-1.2); Eosinophils Absolute Auto 0.5 K/mm3 (0-0.3); Eosinophils Percent Auto 2.8 % (0-4.4); Hematocrit 21.4 % (37.0-47.0); Immature Granulocyte Absolute 0.33 K/mm3 (0.00-0.031); Immature Granulocyte Percent A 1.7 % (0-0.5); Lymphocytes Percent Auto 12.2 % (18.3-44.2); Mean Corpuscular HGB Conc 32.2 g/dl (32-36); Mean Corpuscular Hemoglobin 28.8 pg (26-34); Mean Corpuscular Volume 89.2 fl (80-100); Mean Platelet Volume 9.5 fl (7.4-10.4); Monocytes Absolute Auto 2.1 K/mm3 (0.1-0.6); Monocytes Percent Auto 11.3 % (2.6-8.5); Neutrophils Absolute Auto 13.5 K/mm3 (1.3-6.7); Neutrophils Percent Auto 71.5 % (45.5-73.1); Nucleated Red Blood Cells Perc 0.6 % (0.0-0.2); Platelet Count Result 229 k/mm3 (150-375); Red Cell Distribution Width 14.9 % (11.5-14.5); White Blood Count 18.9 K/mm3 (4.5-10.0)
[2024-02-15 03:09] LABS: Alanine Aminotransferase 34 U/L (6-35); Albumin Level 4.3 g/dL (3.5-5.1); Alkaline Phosphatase 251 U/L (38-126); Anion Gap 13 mmol/L (4-12); Aspartate Amino Transferase 114 U/L (14-36); Bilirubin,Total 0.5 mg/dL (0.2-1.3); Blood Urea Nitrogen 21 mg/dL (7-17); Calcium 9.4 mg/dL (8.4-10.2); Carbon Dioxide 27 mmol/L (22-30); Chloride 96 mmol/L (98-107); Estimated CRCL calculation 51 ml/min; Estimated Glomerular Filt Rate > 60; Glucose 156 mg/dL (65-110); Potassium 3.5 mmol/L (3.4-5.0); Sodium 136 mmol/L (137-145)
[2024-02-15 03:22] LABS: Hemoglobin 6.9 g/dL (12.0-15.0)
--- NOTE | 2024-02-15 03:35 | ED_ITS ---
HPI - General Adult General Chief complaint: Shortness of Breath/Dyspnea Stated complaint: cant breathe, i have pancreatic/liver cancer Time Seen by Provider: 02/15/24 03:24 History of Present Illness HPI narrative: Patient is 68-year-old female who presents emergency department with chief complaint of shortness of breath. Patient reports that she was diagnosed with pancreatic cancer at our facility and then has seen same lotion over city has had a port placed and had an outpatient CT recently the patient reports that she does not want to travel back and forth and reports that she has been getting progressively weaker over the last several days she reports she has had some black stool patient reports no bright red blood per rectum reports she is not on any blood thinners. Related Data Home Medications Medication Instructions Recorded Confirmed cholecalciferol (vitamin D3) 50 50 mcg PO DAILY 09/16/23 01/05/24 mcg (2,000 unit) capsule Allergies Allergy/AdvReac Type Severity Reaction Status Date / Time No Known Allergies Allergy Verified 01/05/24 15:49 Review of Systems Review of Systems: A 10 system review of systems was completed on the patient and is negative except for what is stated in the HPI. Nursing and ancillary documentation was reviewed. [facility] Past Medical History Medical History Alcohol use Arthritis Elevated fasting glucose Essential (primary) hypertension GERD without esophagitis History of tobacco use 80 pack-year smoking history Hyperlipidemia Type 2 diabetes mellitus without complications Vitamin D deficiency Surgical History Surgical History History of colonoscopy with polypectomy (05/2022) Diverticulosis, benign colon polyp, internal hemorrhoids. History of dilation and curettage History of epidermal inclusion cyst excision History of tonsillectomy History of tubal ligation Family History Family History Father Alcoholism Depression Hypertension Cerebrovascular accident Sibling Family history of malignant neoplasm of breast in first degree relative Mother Thyroid condition Family history of lung cancer Other Family history of lupus erythematosus Social History Social History Social History: Surrogate medical decision maker: Del Waterman, spouse. Code status: Full code. Smoking packs per day: 2 Smoking cigarettes per day: 40.0 Years smoked: 40 Smoking pack-years: 80.00 Smoking status: Former smoker Second hand tobacco smoke exposure: Yes Additional smoking assessment comments: 2.5 ppd prior to quitting. 80 pack-year history Alcohol intake: current Drinks per week: 15 Alcohol use details: 2 drinks a day Substance use: never Other substance usage details: does not drink more than 3 whiskey shots a day Do You Feel Safe in your Home?: Yes Lack of Transportation: No Lack of Food: Never True Current Housing: I Have Housing Concerned About Future Housing: No Difficulty Paying Gas/Electric Bills: No Difficulty Paying for Meds: No Currently Unemployed: No Education: High School Diploma/GED Difficulty w/ Childcare or Family Care: No Living arrangements: with family Additional living arrangements comments: Lives with in [place]. Additional occupation/education comments: Retired. Spiritual care concerns: No Exam Narrative: GENERAL: Well-appearing, well-nourished, and in no acute distress. HEAD: Normocephalic, atraumatic. EYES: PERRLA and EOMI. ENT: Nares clear, no rhinorrhea or epistaxis. Mucous membranes moist. NECK: Supple. CHEST: Clear to auscultation. No respiratory distress. HEART: Regular rate and rhythm. No murmur heard. Normal peripheral pulses. ABDOMEN: Soft, nontender, nondistended, normal active bowel sounds. : Guaiac-positive stool EXTREMITIES: Normal range of motion. No edema. SKIN: Warm, dry, no rash. Pale NEURO: No focal deficits. Alert and oriented x3. PSYCH: Normal mood and affect. Course Vital Signs Vital signs: Vital Signs Pulse Rate 104 H 02/15/24 02:40 Pulse Oximetry 100 02/15/24 02:40 Oxygen Delivery Room Air 02/15/24 02:40 Pulse Rate 100 02/15/24 04:04 Respiratory Rate 18 02/15/24 04:04 Blood Pressure 122/71 02/15/24 04:04 Pulse Oximetry 99 02/15/24 04:04 Oxygen Delivery Room Air 02/15/24 02:40 Medical Decision Making MDM Narrative Medical decision making narrative: Differential diagnosis include GI bleed, pneumonia, CHF Laboratory studies were obtained which showed a hemoglobin of 6.9 white count was elevated at 18.9 BUN was 21 The patient was guaiac positive but no hematochezia no bright red blood per rectum and no vomiting of blood. The patient received Protonix in the emergency department unit of packed red blood cells has been ordered on the patient the case was discussed with the hospitalist and also GI the patient requested to stay locally and she did not want to be transferred Vital Signs Vital Signs: Vital Signs Pulse Rate 104 H 02/15/24 02:40 Pulse Oximetry 100 02/15/24 02:40 Oxygen Delivery Room Air 02/15/24 02:40 Pulse Rate 100 02/15/24 04:04 Respiratory Rate 18 02/15/24 04:04 Blood Pressure 122/71 02/15/24 04:04 Pulse Oximetry 99 02/15/24 04:04 Oxygen Delivery Room Air 02/15/24 02:40 Lab Data 02/15/24 02:52 02/15/24 02:52 Labs: Lab Results 02/15/24 02/15/24 Range/Units 02:51 02:52 WBC 18.9 H (4.5-10.0) K/mm3 RBC 2.40 L (4.2-5.4) M/mm3 Hgb 6.9 L* D (12.0-15.0) g/dL Hct 21.4 L (37.0-47.0) % MCV 89.2 (80-100) fl MCH 28.8 (26-34) pg MCHC 32.2 (32-36) g/dl RDW 14.9 H (11.5-14.5) % Plt Count 229 (150-375) k/mm3 MPV 9.5 (7.4-10.4) fl Immature Gran % (Auto) 1.7 H (0-0.5) % Neut % (Auto) 71.5 (45.5-73.1) % Lymph % (Auto) 12.2 L (18.3-44.2) % [place] % (Auto) 11.3 H (2.6-8.5) % Eos % (Auto) 2.8 (0-4.4) % Baso % (Auto) 0.5 (0.2-1.2) % Lymph # (Auto) 2.30 (0.9-3.2) K/mm3 [place] # (Auto) 2.1 H (0.1-0.6) K/mm3 Eos # (Auto) 0.5 H (0-0.3) K/mm3 Baso # (Auto) 0.1 (0.0-0.1) K/mm3 Abs Immat Gran (auto) 0.33 H (0.00-0.031) K/mm3 Absolute Neuts (auto) 13.5 H (1.3-6.7) K/mm3 Absolute Nucleated RBC 0.110 H (0.0-0.012) K/mm3 Nucleated RBC % 0.6 H (0.0-0.2) % Sodium 136 L (137-145) mmol/L Potassium 3.5 (3.4-5.0) mmol/L Chloride 96 L (98-107) mmol/L Carbon Dioxide 27 (22-30) mmol/L Anion Gap 13 H (4-12) mmol/L BUN 21 H D (7-17) mg/dL Creatinine 0.90 (0.7-1.0) mg/dL Estim Creat Clear Calc 51 ml/min Estimated GFR > 60 (59 - ) Glucose 156 H (65-110) mg/dL Calcium 9.4 (8.4-10.2) mg/dL Total Bilirubin 0.5 (0.2-1.3) mg/dL AST 114 H (14-36) U/L ALT 34 (6-35) U/L Alkaline Phosphatase 251 H (38-126) U/L Total Protein 8.0 (6.3-8.2) g/dL Albumin 4.3 (3.5-5.1) g/dL Blood Type O Positive Antibody Screen Negative Discharge Plan Discharge Clinical Impression: Anemia, Pancreatic cancer, GI bleed Patient Disposition: Still a Patient Condition: Stable Prescriptions: No Action cholecalciferol (vitamin D3) 50 mcg (2,000 unit) capsule 50 mcg PO DAILY hydrocodone-acetaminophen 5-325 mg tablet 1 tablet PO Q4H Qty: 20 0RF triamterene-hydrochlorothiazid 37.5-25 mg capsule 1 cap PO DAILY Qty: 90 1RF nebivolol [Bystolic] 10 mg tablet 5 mg PO DAILY Qty: 45 3RF atorvastatin 40 mg tablet 40 mg PO QHS Qty: 90 0RF Rx Instructions: due for an appointment. last refill until seen. omeprazole 20 mg capsule,delayed release(DR/EC) 20 mg PO DAILY Qty: 90 3RF Follow-up/Referrals: Amol Dillon MD [Primary Care Provider] - Time of Disposition: 06:10
[2024-02-15] MEDS: PANTOPRAZOLE SODIUM IV 40 MG VIAL IV PUSH ×2 (03:42→08:43)
[2024-02-15] MEDS: TUBING, BLOOD PLUM PUMP TUBING 1 EACH XX (06:39)
[2024-02-15] MEDS: SODIUM CHLORIDE 0.9% IV 250 ML 30 ML IV CONT (06:39)
[2024-02-15 07:04] LABS: Hematocrit 19.8 % (37.0-47.0); Hemoglobin 6.4 g/dL (12.0-15.0)
--- NOTE | 2024-02-15 09:40 | P.CONGI_ITS ---
Assessment and Plan Assessment and plan (1) Acute blood loss anemia: Code(s): D62 - Acute posthemorrhagic anemia Status: Acute (2) Pancreatic cancer: Qualifiers: Pancreatic malignancy location: tail of pancreas Qualified Code(s): C25.2 - Malignant neoplasm of tail of pancreas Code(s): C25.9 - Malignant neoplasm of pancreas, unspecified Status: Acute (3) GI bleed: Qualifiers: GI bleed type/associated pathology: unspecified gastrointestinal hemorrhage type Qualified Code(s): K92.2 - Gastrointestinal hemorrhage, unspecified Code(s): K92.2 - Gastrointestinal hemorrhage, unspecified Status: Acute (4) Splenic vein thrombosis: Code(s): I82.890 - Acute embolism and thrombosis of other specified veins Status: Acute (5) Elevated LFTs: Code(s): R79.89 - Other specified abnormal findings of blood chemistry Status: Acute (6) Alcohol use: Code(s): Z78.9 - Other specified health status Status: Acute (7) Constipation: Qualifiers: Constipation type: drug induced constipation Qualified Code(s): K59.03 - Drug induced constipation Code(s): K59.00 - Constipation, unspecified Status: Acute (8) Hyponatremia: Code(s): E87.1 - Hypo-osmolality and hyponatremia Status: Acute (9) Liver masses: Code(s): R16.0 - Hepatomegaly, not elsewhere classified Status: Acute (10) Gastric varices: Code(s): I86.4 - Gastric varices Status: Acute (11) Weight loss: Code(s): R63.4 - Abnormal weight loss Status: Acute (12) Appetite loss: Code(s): R63.0 - Anorexia Status: Acute (13) Upper abdominal pain: Code(s): R10.10 - Upper abdominal pain, unspecified Status: Acute Plan 1. ABLA/melena/Hx of gastric varices/NSAID use/ BUQ abdominal pain/ appetite loss/ weight loss: EUS 01/20/2024 Schatzki ring s/p disruption by gentle advancement of gastroscope through stricture. No prior EGD. Last colonoscopy May of 2022 showed diverticulosis and internal hemorrhoids but no findings to explain anemia. CT in December showed gastric varices. CT yesterday showed large cystic mass or walled-off fluid collection that was extensively abutting the greater curvature of the stomach. Patient admits to dark stools x1 week. She has been taking Aleve a few times daily as needed and attempt to decrease her narcotic use. She has Zofran as needed but has not been experiencing nausea or vomiting. She admits to bilateral upper abdominal pain that started last weekend. She describes this pain as a dull ache and states that it improved but did not resolve with bowel movement. She admits to a decreased appetite and a 10 lb weight loss over the past week, stating that she is afraid to eat because she is afraid that it may constipate her. She denies any aspirin or anticoagulant use. No signs of active GI bleeding at this time. Patient states that melena is a new symptom since she had her EUS. DDX: Peptic ulcer disease secondary to NSAID use versus metastatic disease versus AVM versus varices * Anemia likely multifactorial given metastatic disease and acute bleeding * Patient receiving PRBCs during visit, primary care team to continue monitoring H&H and transfuse as needed to keep HGB > 7 * Care with NSAIDs, aspirin, or anticoagulants * Continue PPI * Continue supportive care with pain management and antiemetics * INR ordered * Plan for EGD tomorrow with Dr. Shanks * Keep patient NPO in the event acute bleeding occurs 2. Pancreatic tail adenocarcinoma: EUS performed 01/20/2024 and biopsies confirmed adenocarcinoma in the tail of the pancreas. Patient was seen by oncology at [facility] with Dr. Bravo and Dr. Hsu but has not started treatment. Labs 01/06/2024 showed CEA 13.9, CA 19-9 1680 and CA-125 552. * Further recommendations per oncology, patient has requested to see a local oncologist due to transportation concerns and continued weakness 3. Metastatic adenocarcinoma of the liver/ elevated LFTs/history of EtOH abuse: Bx confirmed adenocarcinoma of the liver compatible with metastatic disease. Labs this admission showed Total bilirubin 0.5, AST 114, ALT 34, alkaline phosphatase 251, albumin 4.3. Patient states that she was previously having 1-3 drinks a few times weekly but denies any alcohol use over the past few months. * Elevated LFTs likely secondary to known metastatic disease, no signs of biliary obstruction /cholestasis * Monitor 4. Acute splenic infarct: CT today showed acute splenic infarct new from prior exam. Patient admitting to dull upper abdominal pain that has improved but not resolved since having a bowel movement on Wednesday. * further recommendations per prior care team/Hematology/vascular * Care with anticoagulants at this time given upper GI bleed, further recommendations to follow endoscopy tomorrow Thank you very much for allowing me to share in the care of this very nice pa kathie. This report may have been done utilizing a voice recognition system. Attempts have been made to correct errors. However, there may be uncorrected grammatical, spelling, and recognition errors present. GI Consult Note Consult date/time: 02/15/24 09:40 Reason for consult: GI bleed and anemia HPI: This is a pleasant female with a past medical surgical history of EtOH use, arthritis, GERD, HLD, diabetes, vitamin-D deficiency, colon polyps, diverticulosis, internal hemorrhoids, tubal ligation, and recent diagnosis of pancreatic cancer with metastasis she presented to the ER room 02/15/2024 with complaints of shortness of breath, weakness, and black stools. GI consulted for anemia and GI bleed. Patient was admitted to [facility] last month at which time she was noted to have a pancreatic mass. She had an EUS on 01/20/2024 at [facility] that showed a cystic lesion in the pancreatic tail suspicious for neoplastic etiology, FNA performed. Biopsy showed adenocarcinoma of the pancreas and liver lesion compatible with metastasis. Oncologist at [facility] are Dr. Anton and Dr. Hsu but per patient she hasn't started treatment with them yet. She has not had a prior EGD. She had a colonoscopy on 06/09/2022 for positive Cologuard that showed diverticulosis, internal hemorrhoids, and 2 tubular adenoma polyps that were removed. 3 year repeat colonoscopy was recommended. She reports a little bit of dull upper abdominal pain that started this past weekend, pain improved but didn't resolve with BM. She had a large formed bowel movement on Wednesday after taking MiraLAX, prior to that she was having small liquid stools, likely overflow. Admits to black stools over the past week including the last BM she had on Wednesday. Denies oral iron or Pepto use. She denies nausea, vomiting, bloating, swallowing difficulty, heartburn but reports belching. Her appetite has been poor and she has lost about 10 lbs over the last week unintentionally. She gets full quickly when eating and is afraid to eat due to fear of getting constipated again. She denies chronic diarrhea or bright red blood in stool but has been going more than 2-3 days without a bowel movement. She takes Colace and MiraLAX for constipation. She was previously taking hydrocodone and oxycodone which she has decreased and has been trying to manage pain with Ibuprofen a few times daily as needed. Denies aspirin or blood thinner use. She quit smoking in 2019. She denies marijuana use. She has no family history of GI cancers. ENDOSCOPY HISTORY: EUS: 01/20/[address] Lukasz Keating for abnormal CT scan showing pancreatic and liver lesions Endoscopy Findings: 1. Schatzki ring status post disruption by gentle advancement of gastroscope through the stricture. 2. A cystic Lesion was seen in the pancreatic tail suspicious for neoplastic etiology. Fine needle aspiration for fluid performed yielding 110 mL of turbid fluid. Fine needle biopsy performed of the thick wall. 3. Normal examined duodenum. 4. There was no sign of significant pathology in the common bile duct. 5. There was no sign of significant pathology in the pancreatic head, uncinate process of the pancreas. The pancreatic body was poorly visualized. 6. One enlarged lymph node was visualized in the peripancreatic region. 7. Several relatively hypoactive neck masses were found in the left and right lobes of the liver. Fine needle biopsies were performed in 1 of them. Biopsy Results: 1. Pancreas, tail cyst, biopsy: Adenocarcinoma 2. Pancreas, tail cyst, biopsy: Adenocarcinoma, scant sampling 3. Liver, lesion, biopsy: Adenocarcinoma, compatible with metastasis EGD: No prior EGD history other than recent EUS COLONOSCOPY: 06/09/[address] Henry for positive Cologuard Findings: ? Multiple diverticula were present in the left colon. The diverticula were not actively bleeding. ? There was a single 12 mm polyp observed in the ascending colon. A hot snare polypectomy was performed. The polyp was completely excised. ? There was a single 4 mm polyp observed in the sigmoid colon. A cold snare polypectomy was performed. The polyp was completely excised. ? The terminal ileum and colon was examined and was normal otherwise, no colitis. ? A few small internal hemorrhoids were seen in the rectum. The hemorrhoids were not actively bleeding. 3 year repeat colonoscopy recommended. Biopsy Results: 1. Large intestine, ascending colon polyp, polypectomy (A): Tubular adenoma 2. Large intestine, sigmoid colon polyp, polypectomy (B): Tubular adenoma LABS AND STOOL STUDIES: Labs 02/15/2024: sodium 136, potassium 3.5, BUN 21, creatinine 0.90, GFR > 60. WBCs 19, HGB 6.4, HCT 20, MCV 89, platelets 229. Total bilirubin 0.5, AST 114, ALT 34, alkaline phosphatase 251, calcium 9.4, albumin 4.3. Labs 01/06/2024: CEA 13.9, CA 19-9 1680, and CA 125 552. IMAGING: CT abd/pelvis w/contrast 02/15/2024 Impression: 1. Acute splenic infarcts, new from prior exam. 2. Large cystic mass or wall or fluid collection the pancreatic tail extensively abutting the greater curvature stomach, similar to prior exam. Stable questionable underlying hypodense pancreatic tail mass. 3. Stable irregular mass involving the left adrenal gland, suspicious for metastasis. 4. Interval progression of extensive hepatic metastatic disease, increased number and size of lesions. 5. New 2 cm nodular lesion at the left lung base, suspicious for metastasis. Additional subcentimeter right basilar pulmonary nodules, as above, which could also represent metastatic lesions. Liver Biopsy 01/05/2024 IMPRESSION: 1. Ultrasound-guided core needle biopsy of small hypoechoic masses in right hepatic lobe. Biopsy Results: 1. Liver, biopsy: Most compatible with benign abscess, as sampled CT abd/pelvis w/contrast 01/05/2024 IMPRESSION: 1. Liver masses, consistent with metastatic disease. Ultrasound-guided core needle biopsy is recommended. 2. Cystic mass of the tail of the pancreas. This finding may be primary malignancy or chronic necrotic pancreatitis with walled off necrosis. 3. 10 mm left adrenal mass, which may be an adenoma or metastatic disease. Chest CTA 01/05/2024 IMPRESSION: 1. Mild emphysema. No pulmonary embolism or other acute cardiopulmonary disease. 2. Multiple ill-defined hypodense hepatic masses which are concerning for metastatic disease, potentially related to a pancreatic primary with infiltrating soft tissue density extending between the tail of the pancreas and the left adrenal gland and possible direct invasion into the splenic artery. Alternatively the change of the pancreas could be related to pancreatitis with liver lesions related to other nonvisualized primary such as a colon cancer. Consider further evaluation with pancreatic protocol CT of the abdomen and pelvis and ultrasound-guided liver biopsy. 3. Mild inflammatory stranding surrounding a 7.6 cm loculated fluid collection which appears to arise from the tail of the pancreas raising suspicion for acute interstitial pancreatitis with secondary abscess, walled off necrosis or pseudocyst. Correlate for history of pancreatitis. Review of Systems Constitutional: Constitutional: Reports as per HPI, Reports fatigue, Reports lethargy and Reports weakness ENT: Reports as per HPI Cardiovascular: Cardiovascular: Reports as per HPI, Denies chest pain, Denies leg edema, Reports lightheadedness and Reports dyspnea Respiratory: Respiratory: Denies cough, Denies hemoptysis and Denies dyspnea Gastrointestinal: Gastrointestinal: Reports as per HPI and Reports melena Genitourinary: Genitourinary: Reports no additional female genitourinary complaints Musculoskeletal: Musculoskeletal: Reports as per HPI Integumentary/Breasts: Skin/Breast: Reports as per HPI Psychiatric: Psychiatric: Reports as per HPI Endocrine: Endocrine: Reports no additional endocrine complaints Hematologic/Lymphatic: Hematologic/Lymphatic: Reports no additional hematologic/lymphatic complaints [facility] Past Medical History Medical History Alcohol use Arthritis Elevated fasting glucose Essential (primary) hypertension GERD without esophagitis History of tobacco use 80 pack-year smoking history Hyperlipidemia Type 2 diabetes mellitus without complications Vitamin D deficiency Surgical History Surgical History History of colonoscopy with polypectomy (05/2022) Diverticulosis, benign colon polyp, internal hemorrhoids. History of dilation and curettage History of epidermal inclusion cyst excision History of tonsillectomy History of tubal ligation Family History Family History Father Alcoholism Depression Hypertension Cerebrovascular accident Sibling Family history of malignant neoplasm of breast in first degree relative Mother Thyroid condition Family history of lung cancer Other Family history of lupus erythematosus Social History Social History Social History: Surrogate medical decision maker: Del Waterman, spouse. Code status: Full code. Smoking packs per day: 2 Smoking cigarettes per day: 40.0 Years smoked: 40 Smoking pack-years: 80.00 Smoking status: Former smoker Second hand tobacco smoke exposure: Yes Additional smoking assessment comments: 2.5 ppd prior to quitting. 80 pack-year history Alcohol intake: current Drinks per week: 15 Alcohol use details: 2 drinks a day Substance use: never Other substance usage details: does not drink more than 3 whiskey shots a day Do You Feel Safe in your Home?: Yes Lack of Transportation: No Lack of Food: Never True Current Housing: I Have Housing Concerned About Future Housing: No Difficulty Paying Gas/Electric Bills: No Difficulty Paying for Meds: No Currently Unemployed: No Education: High School Diploma/GED Difficulty w/ Childcare or Family Care: No Living arrangements: with family Additional living arrangements comments: Lives with in [place]. Additional occupation/education comments: Retired. Spiritual care concerns: No Meds Home Medications and Allergies Home Medications Medication Instructions Recorded Confirmed Type triamterene 37.5 1 cap PO DAILY #90 caps 08/11/23 02/15/24 Rx mg-hydrochlorothiazide 25 mg capsule cholecalciferol (vitamin D3) 50 50 mcg PO DAILY 09/16/23 02/15/24 History mcg (2,000 unit) capsule nebivolol 10 mg tablet (Bystolic) 5 mg PO DAILY #45 tabs 11/23/23 02/15/24 Rx atorvastatin 40 mg tablet 40 mg PO QHS #90 tabs 01/17/24 02/15/24 Rx omeprazole 20 mg capsule,delayed 20 mg PO DAILY #90 caps 02/01/24 02/15/24 Rx release Allergies Allergy/AdvReac Type Severity Reaction Status Date / Time No Known Allergies Allergy Verified 01/05/24 15:49 Vital Signs Vital Signs - 24 hr 02/15/24 02:40 02/15/24 02:40 02/15/24 04:04 Temperature Pulse Rate 104 H 100 Respiratory Rate 18 Blood Pressure 122/71 Pulse Oximetry 100 99 Oxygen Delivery Room Air Fraction of Inspired Oxygen 02/15/24 06:16 02/15/24 06:37 02/15/24 06:52 Temperature 97.5 F L 98.1 F Pulse Rate 91 102 H 97 Respiratory Rate 15 20 14 Blood Pressure 104/63 119/78 113/73 Pulse Oximetry 99 100 99 Oxygen Delivery Fraction of Inspired Oxygen 02/15/24 07:34 02/15/24 06:57 Temperature 98.1 F Pulse Rate 97 Respiratory Rate 14 Blood Pressure 113/73 Pulse Oximetry 98 99 Oxygen Delivery Room Air Fraction of Inspired Oxygen 21 Exam Const: General: cooperative, healthy appearing, comfortable, no acute distress and well developed Orientation/consciousness: oriented to person, oriented to place, oriented to time and patient oriented x3 HENMT: Head: normal to inspection, normocephalic and atraumatic Mouth: Yes Normal oral and palatal mucosa present and Yes moist mucous membranes Eyes: General: appearance normal, both eyes and all related structures Conjunctivae: conjunctivae normal Sclera: sclerae normal Pupils: Equal, round and reactive pupils present Neck: Neck: normal visual inspection Chest: Chest palpation & inspection: normal inspection of the chest Resp: Effort & Inspection: normal respiratory effort and able to speak in complete sentences Auscultation: clear to auscultation bilaterally Cardio: Jugular venous distension: no JVD Rate: regular rate Rhythm: regular rhythm Heart sounds: S1 normal heart sound present and S2 normal heart sound present GI: Inspection: normal to inspection GI Palp: Yes Soft to palpation, No Firmness to palpation present (GI), No Tenderness to palpation present (GI), No Guarding due to palpation present (GI) and Yes No hepatosplenomegaly present Auscultation: normal bowel sounds Rectal Exam: deferred Skin: General skin exam: normal color and no rashes or lesions noted Neuro: General: oriented to person, oriented to place, oriented to time and patient oriented x3 Cranial nerves: Yes Equal, round and reactive pupils present Speech: normal speech Extrem: General: normal to inspection and no clubbing, cyanosis or edema Psych: Appearance: grossly normal and well kempt Affect: normal affect Results Labs 02/15/24 06:58 02/15/24 02:52 Labs: Short CBC 02/15/24 02/15/24 Range/Units 02:52 06:58 WBC 18.9 H (4.5-10.0) K/mm3 Hgb 6.9 L* D 6.4 L* (12.0-15.0) g/dL Hct 21.4 L 19.8 L* (37.0-47.0) % Plt Count 229 (150-375) k/mm3 BMP 02/15/24 02:52 Sodium 136 L Potassium 3.5 Chloride 96 L Carbon Dioxide 27 BUN 21 H D Creatinine 0.90 Glucose 156 H Calcium 9.4 Liver Function 02/15/24 Range/Units 02:52 Total Bilirubin 0.5 (0.2-1.3) mg/dL AST 114 H (14-36) U/L ALT 34 (6-35) U/L Alkaline Phosphatase 251 H (38-126) U/L Albumin 4.3 (3.5-5.1) g/dL
[2024-02-15 10:19] LABS: INR 1.4; Prothrombin Time 17.3 Seconds (11.1-14.7)
[2024-02-15] MEDS: SODIUM CHLORIDE 0.9% IV 1,000 ML 125 ML IV CONT ×2 (10:27→17:07)
[2024-02-15] MEDS: ACETAMINOPHEN 325 MG TABLET 650 MG PO (10:27)
[2024-02-15 11:33] LABS: Iron 59 ug/dL (37-170)
[2024-02-15 11:43] LABS: Percent Iron Saturation 17 % (20-50)
[2024-02-15 12:12] LABS: Hematocrit 24.2 % (37.0-47.0); Hemoglobin 7.9 g/dL (12.0-15.0)
[2024-02-15] MEDS: HYDROcodone/acetaminophen (*CRX) 5-325 MG TABLET 1 TAB PO ×2 (12:44→17:10)
--- NOTE | 2024-02-15 15:56 | P.HP_ITS ---
H&P: HPI History of Present Illness Date/Time: 02/15/24 15:56 Chief Complaint: SOb and melena stool Narrative: This is a pleasant female with a past medical surgical history of EtOH use, arthritis, GERD, HLD, diabetes, vitamin-D deficiency, colon polyps, diverticulosis, internal hemorrhoids, tubal ligation, and recent diagnosis of pancreatic cancer with metastasis she presented to the ER room 02/15/2024 with complaints of shortness of breath, weakness, and black stools. patient reported she has been having dark stools for the a few weeks, she also reported upper abd pain. Stated she has been having worsening gen weakness and SOB which prompted her to present to the ER for proper eval and care. She was diagnosed of metastatic pancreatic cancer and noted she follows oncologist in [place] however she does not know the plan but has a porth. Denies any fever, diarrhea, chest pain, leg swelling or vomiting. vital signs stable. hb in the ER was hb 6.4 s/p 1unit pRBC with Hb 7.9. GI consulted. Review of Systems Review of Systems: All other systems were reviewed and negative except as noted in the HPI above. [facility] Past Medical History Medical History Alcohol use Arthritis Elevated fasting glucose Essential (primary) hypertension GERD without esophagitis History of tobacco use 80 pack-year smoking history Hyperlipidemia Type 2 diabetes mellitus without complications Vitamin D deficiency Surgical History Surgical History History of colonoscopy with polypectomy (05/2022) Diverticulosis, benign colon polyp, internal hemorrhoids. History of dilation and curettage History of epidermal inclusion cyst excision History of tonsillectomy History of tubal ligation Family History Family History Father Alcoholism Depression Hypertension Cerebrovascular accident Sibling Family history of malignant neoplasm of breast in first degree r elative Mother Thyroid condition Family history of lung cancer Other Family history of lupus erythematosus Social History Social History Social History: Surrogate medical decision maker: Del Waterman, spouse. Code status: Full code. Smoking packs per day: 2 Smoking cigarettes per day: 40.0 Years smoked: 40 Smoking pack-years: 80.00 Smoking status: Former smoker Second hand tobacco smoke exposure: Yes Additional smoking assessment comments: 2.5 ppd prior to quitting. 80 pack-year history Alcohol intake: current Drinks per week: 15 Alcohol use details: 2 drinks a day Substance use: never Other substance usage details: does not drink more than 3 whiskey shots a day Do You Feel Safe in your Home?: Yes Lack of Transportation: No Lack of Food: Never True Current Housing: I Have Housing Concerned About Future Housing: No Difficulty Paying Gas/Electric Bills: No Difficulty Paying for Meds: No Currently Unemployed: No Education: High School Diploma/GED Difficulty w/ Childcare or Family Care: No Living arrangements: with family Additional living arrangements comments: Lives with in [place]. Additional occupation/education comments: Retired. Spiritual care concerns: No Meds Home Medications and Allergies Home Medications Medication Instructions Recorded Confirmed Type triamterene 37.5 1 cap PO DAILY #90 caps 08/11/23 02/15/24 Rx mg-hydrochlorothiazide 25 mg capsule cholecalciferol (vitamin D3) 50 50 mcg PO DAILY 09/16/23 02/15/24 History mcg (2,000 unit) capsule nebivolol 10 mg tablet (Bystolic) 5 mg PO DAILY #45 tabs 11/23/23 02/15/24 Rx atorvastatin 40 mg tablet 40 mg PO QHS #90 tabs 01/17/24 02/15/24 Rx omeprazole 20 mg capsule,delayed 20 mg PO DAILY #90 caps 02/01/24 02/15/24 Rx release Allergies Allergy/AdvReac Type Severity Reaction Status Date / Time No Known Allergies Allergy Verified 02/15/24 10:28 Vital Signs Vital Signs - 24 hr 02/15/24 02:40 02/15/24 02:40 02/15/24 04:04 Temperature Pulse Rate 104 H 100 Respiratory Rate 18 Blood Pressure 122/71 Pulse Oximetry 100 99 Oxygen Delivery Room Air Fraction of Inspired Oxygen 02/15/24 06:16 02/15/24 06:37 02/15/24 06:52 Temperature 97.5 F L 98.1 F Pulse Rate 91 102 H 97 Respiratory Rate 15 20 14 Blood Pressure 104/63 119/78 113/73 Pulse Oximetry 99 100 99 Oxygen Delivery Fraction of Inspired Oxygen 02/15/24 07:34 02/15/24 10:25 02/15/24 08:00 Temperature 97.9 F Pulse Rate 78 Respiratory Rate 18 Blood Pressure 109/83 Pulse Oximetry 98 93 Oxygen Delivery Room Air Room Air Fraction of Inspired Oxygen 21 02/15/24 12:00 02/15/24 06:57 Temperature 98.1 F Pulse Rate 99 97 Respiratory Rate 14 Blood Pressure 113/73 Pulse Oximetry 99 Oxygen Delivery Fraction of Inspired Oxygen Exam Narrative: General: alert and comfortable Eyes: EOMI, PERRLA ENNT External ears normal, Neck is supple, no masses, Respiratory systems: Clear to auscultation Cardiovascular S1, S2, normal rhythm, no murmur, rub, or gallop; no thrill or palpable murmurs on palpation. Gastrointestinal: soft, epigastric tenderness , and non-distended abdomen with no masses; BS present Skin: no rash, lesions, ulcerations, subcutaneous nodules or induration Musculoskeletal: no abnormality and no tenderness, normal ROM Neurologic: Alert and oriented x3, non focal Mental Status Exam: normal affect H&P: Results Labs Labs: Short CBC 02/15/24 02/15/24 02/15/24 Range/Units 02:52 06:58 12:06 WBC 18.9 H (4.5-10.0) K/mm3 Hgb 6.9 L* D 6.4 L* 7.9 L (12.0-15.0) g/dL Hct 21.4 L 19.8 L* 24.2 L (37.0-47.0) % Plt Count 229 (150-375) k/mm3 [facility] 02/15/24 02:52 Sodium 136 L Potassium 3.5 Chloride 96 L Carbon Dioxide 27 BUN 21 H D Creatinine 0.90 Glucose 156 H Calcium 9.4 Liver Function 02/15/24 Range/Units 02:52 Total Bilirubin 0.5 (0.2-1.3) mg/dL AST 114 H (14-36) U/L ALT 34 (6-35) U/L Alkaline Phosphatase 251 H (38-126) U/L Albumin 4.3 (3.5-5.1) g/dL ECG Interpretation: CT AP Impression: Acute splenic infarcts, new from prior exam. Large cystic mass or wall or fluid collection the pancreatic tail extensively abutting the greater curvature stomach, similar to prior exam. Stable questionable underlying hypodense pancreatic tail mass. Stable irregular mass involving the left adrenal gland, suspicious for metastasis. Interval progression of extensive hepatic metastatic disease, increased number and size of lesions. New 2 cm nodular lesion at the left lung base, suspicious for metastasis. Additional subcentimeter right basilar pulmonary nodules, as above, which could also represent metastatic lesions. Assessment and Plan Assessment and plan (1) Upper abdominal pain: Code(s): R10.10 - Upper abdominal pain, unspecified Status: Acute (2) Acute blood loss anemia: Code(s): D62 - Acute posthemorrhagic anemia Status: Acute (3) Anemia: Code(s): D64.9 - Anemia, unspecified Status: Acute (4) Pancreatic cancer: Qualifiers: Pancreatic malignancy location: tail of pancreas Qualified Code(s): C25.2 - Malignant neoplasm of tail of pancreas Code(s): C25.9 - Malignant neoplasm of pancreas, unspecified Status: Acute Plan Gi bleed with anemia Hb 7.9 s/p 1 unit patient presented with melena stool has a metastatic pancreatic can continue Protonix Gi consulted Monitor h and h Metastatic pancreatic ca Patient newly diagnosed CT AP showed metastases to Liver, adrenal and lung Following with oncology in [place] patient has a new port but does not know the plan Recommended her to call her oncology for plan of car e Splenic infarct CT AP showed new splenic infarct ?Thrombosis Ultrasound ordered Dm2 Continue SSI with accucheks adjust with clinical course DVT prophyalxis on SCDs, no AC due to Gi bleed
[2024-02-15] MEDS: ONDANSETRON INJ 4 MG/2 ML VIAL IV PUSH (17:10)
[2024-02-15 18:23] LABS: Hematocrit 22.9 % (37.0-47.0); Hemoglobin 7.5 g/dL (12.0-15.0)
[2024-02-15] MEDS: MORPHINE SULFATE (*CRX) 2 MG/ML INJ IV PUSH (23:03)
[2024-02-16] VITALS (16 sets, daily range): BP systolic 103–142; BP diastolic 68–88; PULSE 70–110; RESP 12–16; TEMP 36.5–37.2; O2SAT 91–96
--- NOTE | 2024-02-16 | ECHO_ITS ---
Patient Info Name: Crystal Waterman Age: 68 years : 1955 Gender: Female Ht: 66 in Wt: 154 lbs BSA: 1.81 m2 HR: 101 bpm BP: 128 / 88 mmHg Technical Quality: Poor Exam Date: 02/16/2024 3:31 PM Exam Location: Echo Lab Patient Status: Inpatient Admit Date: 02/16/2024 Staff Ordering Physician: Jozef Fink MD [place] Supervisor: Holger Blackmon RDCS Attending Provider: Stephanie German DO Exam Type: CA echo doppler w bubble study Study Info Indications - stroke Complete two-dimensional, color flow and Doppler transthoracic echocardiogram is performed with agitated saline. Contrast/Agitated Saline Contrast/Ag. Saline: Agitated Saline Amount: 14.00 ml Existing IV Access: Yes IV Access Condition: patent with no signs of infiltration Reason for Poor Study: poor patient cooperation Summary 1. The left ventricle is normal in size and systolic function. The LVEF is visually estimated to be 60-65%. 2. There is no evidence of [id number] interatrial shunt. Left Ventricle The left ventricle is normal in size and systolic function. The LVEF is visually estimated to be 60-65%. Right Ventricle The right ventricle is normal in size and systolic function. Left Atria The left atrium is mildly enlarged. Right Atria The right atrium is normal size. Atrial Septum There is no evidence of [id number] interatrial shunt. Aortic Valve The aortic valve is trileaflet and opens well. There is no aortic regurgitation. Pulmonic Valve The pulmonic valve is not well visualized. There is no color Doppler evidence of pulmonic valve regurgitation. Mitral Valve Mitral valve is normal and opens well. There is trace mitral regurgitation. Tricuspid Valve The tricuspid valve is normal. There is trace tricuspid regurgitation. Pericardium/Pleural Pericardium is normal in appearance with no evidence for significant pericardial effusion. Inferior Vena Cava Normal inferior vena cava with >50% collapse upon inspiration consistent with normal right atrial pressure, 3 mmHg. Left Ventricular Outflow Tract Name Value Normal LVOT 2D LVOT Diameter 2.0 cm LVOT Doppler LVOT Peak Gradient 4 mmHg LVOT Mean Gradient 2 mmHg LVOT VTI 17 cm LVOT VTI/AV VTI Ratio 0.8 LVOT Stroke Volume 55 ml LVOT CO 4.5 l/min LVOT CI 2.5 l/min/m2 Pulmonic Valve Name Value Normal PV Doppler PV Peak Gradient 4 mmHg Mitral Valve Name Value Normal MV Doppler MV Decel Bollinger 470 cm/s2 MV PHT 35 ms MV Area (PHT) 6.3 cm2 4.0-5.0 MV Diastolic Function MV E Peak Velocity 57 cm/s MV A Peak Velocity 80 cm/s MV E/A 0.7 MV Decel Time 121 ms Tricuspid Valve Name Value Normal TV Regurgitation Doppler TR Peak Velocity 320 cm/s TR Peak Gradient 38 mmHg Estimated PAP/RSVP RA Pressure 3 mmHg <=5 PA Systolic Pressure 44 mmHg <36 RV Systolic Pressure 44 mmHg <36 Aorta Name Value Normal Ascending Aorta Ao Root Diameter (MM) 2.6 cm Ao Root Diam Index (MM) 1.4 cm/m2 Aortic Valve Name Value Normal AV Doppler AV Peak Velocity 130 cm/s AV Peak Gradient 7 mmHg AV Mean Gradient 3 mmHg AV VTI 23 cm AV Area (Cont Eq VTI) 2.4 cm2 >=3.0 AV Area (Cont Eq Giuseppe) 2.4 cm2 AV Regurgitation 2D LVOT Area 3.2 cm2 Ventricles Name Value Normal LV Dimensions 2D/MM IVS Diastolic Thickness (2D) 0.8 cm 0.6-1.0 IVS Diastole Thickness (MM) 0.8 cm 0.6-0.9 LVID Diastole (2D) 5.1 cm 3.8-5.2 LVID Diastole (MM) 5.1 cm 3.8-5.2 LVIW Diastolic Thickness (2D) 0.8 cm 0.6-0.9 LVIW Diastolic Thickness (MM) 0.9 cm 0.6-0.9 LVID Systole (2D) 3.1 cm 2.2-3.5 LVID Systole (MM) 3.0 cm 2.2-3.5 LVOT Diameter 2.0 cm LV Mass (2D Cubed) 141.58 g 67.00-162.00 LV Mass Index (2D Cubed) 78 g/m2 43-95 Relative Wall Thickness (2D) 0.33 LV Mass (MM Cubed) 153.54 g 67.00-162.00 LV Mass Index (MM Cubed) 85 g/m2 43-95 Relative Wall Thickness (MM) 0.35 LV Fractional Shortening/Ejection Fraction 2D/MM LV Fractional Shortening (2D) 39 % 27-45 LV Fractional Shortening (MM) 41 % 27-45 LV EF (MM Teicholz) 72 % 54-74 LV EF (2D Teicholz) 69 % 54-74 LV Diastolic Volume (4C MOD) 80 ml LV EF (4C MOD) 74 % LV Diastolic Length (4C) 7.7 cm LV Systolic Length (4C) 7.0 cm LV Stroke Volume (4C MOD) 60 ml Atria Name Value Normal LA Dimensions LA Dimension (MM) 3.6 cm 2.7-3.8 LA Volume (4C A-L) 93 ml LA Volume (BP A-L) 63 ml RA Dimensions RA Area (4C) 15.1 cm2 <=18.0 Report Signatures
[2024-02-16 00:25] LABS: Hematocrit 21.5 % (37.0-47.0)
[2024-02-16] MEDS: HYDROcodone/acetaminophen (*CRX) 5-325 MG TABLET 1 TAB PO (02:44)
[2024-02-16] MEDS: SODIUM CHLORIDE 0.9% IV 1,000 ML 125 ML IV CONT ×3 (05:30→21:14)
[2024-02-16 07:15] LABS: Basophils Absolute Auto 0.1 K/mm3 (0.0-0.1); Basophils Percent Auto 0.5 % (0.2-1.2); Eosinophils Absolute Auto 0.2 K/mm3 (0-0.3); Eosinophils Percent Auto 1.6 % (0-4.4); Hematocrit 25.9 % (37.0-47.0); Hemoglobin 8.5 g/dL (12.0-15.0); Immature Granulocyte Absolute 0.24 K/mm3 (0.00-0.031); Immature Granulocyte Percent A 1.6 % (0-0.5); Immature Platelet Fraction Pct 4.6 % (0.9-11.2); Lymphocytes Absolute Auto 1.23 K/mm3 (0.9-3.2); Lymphocytes Percent Auto 8.1 % (18.3-44.2); Mean Corpuscular HGB Conc 32.8 g/dl (32-36); Mean Corpuscular Hemoglobin 29.8 pg (26-34); Mean Corpuscular Volume 90.9 fl (80-100); Mean Platelet Volume 9.8 fl (7.4-10.4); Monocytes Absolute Auto 2.2 K/mm3 (0.1-0.6); Monocytes Percent Auto 14.6 % (2.6-8.5); Neutrophils Absolute Auto 11.2 K/mm3 (1.3-6.7); Neutrophils Percent Auto 73.6 % (45.5-73.1); Nucleated Red Blood Cells Perc 0.4 % (0.0-0.2); Platelet Count Result 156 k/mm3 (150-375); Red Blood Count 2.85 M/mm3 (4.2-5.4); Red Cell Distribution Width 14.4 % (11.5-14.5); White Blood Count 15.2 K/mm3 (4.5-10.0)
[2024-02-16 07:32] LABS: Alanine Aminotransferase 31 U/L (6-35); Albumin Level 3.6 g/dL (3.5-5.1); Alkaline Phosphatase 182 U/L (38-126); Anion Gap 11 mmol/L (4-12); Aspartate Amino Transferase 140 U/L (14-36); Bilirubin,Total 0.6 mg/dL (0.2-1.3); Blood Urea Nitrogen 15 mg/dL (7-17); Calcium 8.5 mg/dL (8.4-10.2); Carbon Dioxide 25 mmol/L (22-30); Chloride 102 mmol/L (98-107); Estimated CRCL calculation 73 ml/min; Estimated Glomerular Filt Rate > 60; Glucose 113 mg/dL (65-110); Magnesium 1.8 mg/dL (1.6-2.3); Potassium 3.8 mmol/L (3.4-5.0); Sodium 138 mmol/L (137-145)
[2024-02-16] MEDS: PANTOPRAZOLE SODIUM IV 40 MG VIAL IV PUSH (08:23)
[2024-02-16] MEDS: MORPHINE SULFATE (*CRX) 2 MG/ML INJ IV PUSH ×2 (08:23→14:29)
[2024-02-16] MEDS: ONDANSETRON INJ 4 MG/2 ML VIAL IV PUSH (08:23)
--- NOTE | 2024-02-16 12:33 | P.PNIM_ITS ---
Progress Note: A&P Assessment and Plan (1) Upper abdominal pain: Code(s): R10.10 - Upper abdominal pain, unspecified Status: Acute (2) Acute blood loss anemia: Code(s): D62 - Acute posthemorrhagic anemia Status: Acute (3) Anemia: Code(s): D64.9 - Anemia, unspecified Status: Acute (4) Pancreatic cancer: Qualifiers: Pancreatic malignancy location: tail of pancreas Qualified Code(s): C25.2 - Malignant neoplasm of tail of pancreas Code(s): C25.9 - Malignant neoplasm of pancreas, unspecified Status: Acute Plan Acute Stroke Patient had altered mental status this morning about 11:[address] head showed left frontal lobe infarct likely acute MRI brain showed bilateral cerebral and cerebellar infarcts CTA head and neck, echo, EEG, carotid duplex ordered. Discussed with Dr. Gillette from Neurology and he noted since patient has GI bleed, bihemispheric infarcts she is not a candidate for T and K therefore go ahead with the stroke workup. Hold aspirin due to GI bleed. Abdominal pain CT abdomen showed a bernard of necrotizing pancreatitis Blood culture ordered, p.r.n. pain control, side meropenem. General surgery consulted. GI following. Gi bleed with anemia Hb 8.5 s/p 1 unit patient presented with melena stool has a metastatic pancreatic can continue Protonix Gi consulted Monitor h and h Metastatic pancreatic ca Patient newly diagnosed outpatient CT AP showed metastases to Liver, adrenal and lung Following with oncology in [facility] patient has a new port but does not know the plan New CT abdomen pelvis reviewed Contact [facility] oncology who noted that, they will see in consult if hospitalist will accept Awaiting hospitalist call Splenic infarct CT AP showed new splenic infarct Splenic Thrombosis with splenogastric varices, with irregular narrowing and possible reduced flow in the splenic artery No anticoagulation due to GI bleed Dm2 Continue SSI with Accucheks adjust with clinical course DVT prophylaxis on SCDs, no AC due to Gi bleed transfer to [facility] for close monitoring Subjective Date/time seen: 02/16/24 12:33 Interval history: Patient this morning, complained of severe abd pain in the RL abd region and was later confused for which CT head and CT AP were obtained Showed left Infarct in left frontal lobe, probably acute. MRI brain showed scattered acute infarcts in the cerebrum and cerebellum CT AP showed IMPRESSION: 1. Liver masses measuring up to 2.8 cm, worsened from 01/05/2024. Biopsy of a liver mass demonstrated abscess. 2. Worsened splenic infarcts. 3. Thick-walled cystic mass of the pancreatic tail with involvement of the left adrenal gland and stomach wall, most likely contacting necrotic pancreatitis with walled off necrosis. 4. Worsened left lower lobe pulmonary nodule, likely infection. CTA head and neck, ECHO, EEG,carotid doppler ordered discussed with Neurology Dr Gillette who noted that patient is not a TNK candidate since she is GI bleed and has hemispheric infarct Will continue regular stroke workup Gen surgery consulted Also contacting [facility] for possible transfer given the myriad of problems in addition to the WON pancreatitis, Stroke, and GI bleed. Review of Systems Review of Systems: All other systems were reviewed and negative except as noted in the HPI above. Exam Narrative: General: alert and comfortable Eyes: EOMI, PERRLA ENNT External ears normal, Neck is supple, no masses, Respiratory systems: Clear to auscultation Cardiovascular S1, S2, normal rhythm, no murmur, rub, or gallop; no thrill or palpable murmurs on palpation. Gastrointestinal: soft, epigastric tenderness , and non-distended abdomen with no masses; BS present Skin: no rash, lesions, ulcerations, subcutaneous nodules or induration Musculoskeletal: no abnormality and no tenderness, normal ROM Neurologic: Alert and oriented x3, non focal Mental Status Exam: normal affect Objective Data Vital Signs Vital Signs: Vital Signs - 24 hr 02/15/24 14:00 02/15/24 16:00 02/15/24 20:04 Temperature 97.3 F L 97.4 F L Pulse Rate 66 102 H 90 Respiratory Rate 18 16 Blood Pressure 126/64 117/66 Pulse Oximetry 100 94 Oxygen Delivery 02/15/24 20:00 02/16/24 01:05 02/16/24 01:20 Temperature 98.4 F 98.2 F Pulse Rate 97 100 Respiratory Rate 16 16 Blood Pressure 120/73 120/69 Pulse Oximetry 95 94 Oxygen Delivery Room Air 02/16/24 02:20 02/16/24 03:20 02/16/24 03:54 Temperature 98.4 F 97.7 F 98.4 F Pulse Rate 70 77 78 Respiratory Rate 16 14 16 Blood Pressure 103/69 125/68 128/88 Pulse Oximetry 94 94 93 Oxygen Delivery 02/16/24 03:48 02/15/24 20:00 02/16/24 00:00 Temperature 98.4 F Pulse Rate 78 97 102 H Respiratory Rate 16 Blood Pressure 128/88 Pulse Oximetry 93 Oxygen Delivery 02/16/24 04:00 02/16/24 08:00 02/16/24 08:00 Temperature Pulse Rate 72 88 Respiratory Rate Blood Pressure Pulse Oximetry Oxygen Delivery Room Air Intake/Output Intake/Output: Intake & Output 02/13/24 02/14/24 02/15/24 02/16/24 23:59 23:59 23:59 23:59 Intake Total 1183.3 1350 Balance 1183.3 1350 Meds/Results Medications: Active Medications Generic Name Dose Route Start Last Admin Trade Name Freq PRN Reason Stop Dose Admin Acetaminophen 650 mg 02/15/24 06:10 02/15/24 10:27 Acetaminophen 325 Mg Tablet PO 650 mg Q4H PRN Administration Mild Pain (1-3) or Fever Hydrocodone Bitart/Acetaminophen 1 tab 02/15/24 11:36 02/16/24 02:44 Hydrocodone/Acetaminophen (*Crx) 5-325 Mg Tablet PO 1 tab Q4H PRN Administration Pain Rated 4-6 Sodium Chloride 1,000 mls @ 125 mls/hr 02/15/24 06:10 02/16/24 08:25 Normal Saline Iv IV CONT Not Given .Q8H MARCELLA Lactated Ringer's 1,000 mls @ 150 mls/hr 02/16/24 07:30 Lr - Lactated Ringers Iv IV CONT .[id number] MARCELLA Morphine Sulfate 2 mg 02/15/24 11:36 02/16/24 08:23 Morphine Sulfate (*Crx) 2 Mg/Ml Inj IV PUSH 2 mg Q4H PRN Administration Pain Rated 7-10 Ondansetron HCl 4 mg 02/15/24 06:10 02/16/24 08:23 Ondansetron Inj 4 Mg/2 Ml Vial IV PUSH 4 mg Q4H PRN Administration Nausea Pantoprazole Sodium 40 mg 02/15/24 09:00 02/16/24 08:23 Pantoprazole Sodium Iv 40 Mg Vial IV PUSH 40 mg QAM MARCELLA Administration Radiology Results: ITS Impressions Chest X-Ray 02/15/24 06:51 Impression: Clear lungs. Right-sided Mediport. 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 Irregular narrowing and possible reduced flow in the splenic artery. Head CT 02/16/24 11:04 IMPRESSION: 1. Infarct in left frontal lobe, probably acute. 2. Age-indeterminate infarcts in the cerebellum bilaterally. Abdomen/Pelvis CT 02/16/24 11:08 IMPRESSION: 1. Liver masses measuring up to 2.8 cm, worsened from 01/05/2024. Biopsy of a liver mass demonstrated abscess. 2. Worsened splenic infarcts. 3. Thick-walled cystic mass of the pancreatic tail with involvement of the left adrenal gland and stomach wall, most likely contacting necrotic pancreatitis with walled off necrosis. 4. Worsened left lower lobe pulmonary nodule, likely infection. ADDENDUM: 02/16/24 1130 Outside biopsy of the cystic pancreatic mass and a liver mass demonstrated adenocarcinoma and metastatic disease. Labs Labs: Laboratory Results - last 24 hr 02/15/24 02/15/24 02/15/24 02:51 10:02 18:14 WBC RBC Hgb 7.5 L Hct 22.9 L MCV MCH MCHC RDW Plt Count MPV Immature Gran % (Auto) Neut % (Auto) Lymph % (Auto) [place] % (Auto) Eos % (Auto) Baso % (Auto) Lymph # (Auto) [place] # (Auto) Eos # (Auto) Baso # (Auto) Abs Immat Gran (auto) Absolute Neuts (auto) Absolute Nucleated RBC Nucleated RBC % % Immature Plt Fraction Sodium Potassium Chloride Carbon Dioxide Anion Gap BUN Creatinine Estim Creat Clear Calc Estimated GFR Glucose Calcium Magnesium Ferritin 181.00 Total Bilirubin AST ALT Alkaline Phosphatase Total Protein Albumin Blood Type O Positive Antibody Screen Negative Crossmatch See Detail 02/16/24 02/16/24 00:15 06:49 WBC 15.2 H RBC 2.85 L Hgb 7.0 L 8.5 L Hct 21.5 L 25.9 L MCV 90.9 MCH 29.8 MCHC 32.8 RDW 14.4 Plt Count 156 MPV 9.8 Immature Gran % (Auto) 1.6 H Neut % (Auto) 73.6 H Lymph % (Auto) 8.1 L [place] % (Auto) 14.6 H Eos % (Auto) 1.6 Baso % (Auto) 0.5 Lymph # (Auto) 1.23 [place] # (Auto) 2.2 H Eos # (Auto) 0.2 Baso # (Auto) 0.1 Abs Immat Gran (auto) 0.24 H Absolute Neuts (auto) 11.2 H Absolute Nucleated RBC 0.060 H Nucleated RBC % 0.4 H % Immature Plt Fraction 4.6 Sodium 138 Potassium 3.8 Chloride 102 Carbon Dioxide 25 Anion Gap 11 BUN 15 D Creatinine 0.60 L Estim Creat Clear Calc 73 Estimated GFR > 60 Glucose 113 H Calcium 8.5 Magnesium 1.8 Ferritin Total Bilirubin 0.6 AST 140 H ALT 31 Alkaline Phosphatase 182 H Total Protein 7.0 Albumin 3.6 Blood Type Antibody Screen Crossmatch
--- NOTE | 2024-02-16 14:15 | WPDNEURCNPN ---
Assessment and Plan Assessment and plan (1) Weight loss: Code(s): R63.4 - Abnormal weight loss Status: Acute (2) Anemia: Code(s): D64.9 - Anemia, unspecified Status: Acute (3) GI bleed: Qualifiers: GI bleed type/associated pathology: unspecified gastrointestinal hemorrhage type Qualified Code(s): K92.2 - Gastrointestinal hemorrhage, unspecified Code(s): K92.2 - Gastrointestinal hemorrhage, unspecified Status: Acute (4) History of multiple strokes: Code(s): Z86.73 - Personal history of transient ischemic attack (TIA), and cerebral infarction without residual deficits Status: Acute Plan generalized deconditioning with underlying malignancy medica problems as mentioned above, CT scan of the head documented left frontal lobe of acute in nature but age undetermined infarct in cerebellum bilateral MRI of the brain has confirmed widespread scattered acute infarct in cerebellum and cerebrum which is also confirmed by the acute infarct bilateral cerebellum left frontal lobe on CTA obviously there is no aneurysm supportive treatment will be continued as such Consult date: 02/16/24 HPI: Crystal Waterman is a 68 year old female Admitted to the hospital through the emergency room with ongoing history of carcinoma of the pancreas and liver but complaints of difficulties in breathing and complained of progressively getting weaker in addition to the history of taking only coli calciferol and history of not allergic to any medications. Does have ongoing history of arthritis with alcohol use, hypertension and history of tobacco use for 80 packs year smoking history in addition to type 2 diabetes mellitus and vitamin D deficiency. At present his smoking 4 cigarettes per day years smoked 40 with smoking pack years of 80 but former smoker though she is currently alcohol drinking 15 drinks per week that is 2 drinks a day on initial exam in the emergency room she had no generalized or focal neurological finding vital signs were normal except initially her pulse rate was 104 and hemoglobin was only 6.9 with white blood cells of 18.9 GI consultation has already been obtained with documentation of advanced pancreatic carcinoma with hepatic metastatic disease has been noted to have black tarry stools with NSAID taking orall was to have the EGD, initial Doppler sonogram revealed no splenic vein thrombosis but there was evidence of splenic infarction on CT scan EGD is planned and has already seen the oncologist as jovanny with confirmation of metastatic adenocarcinoma of the liver CT scan here showed the acute splenic infarct PMFSH Past Medical History Medical History Alcohol use Arthritis Elevated fasting glucose Essential (primary) hypertension GERD without esophagitis History of tobacco use 80 pack-year smoking history Hyperlipidemia Type 2 diabetes mellitus without complications Vitamin D deficiency Surgical History Surgical History History of colonoscopy with polypectomy (05/2022) Diverticulosis, benign colon polyp, internal hemorrhoids. History of dilation and curettage History of epidermal inclusion cyst excision History of tonsillectomy History of tubal ligation Family History Family History Father Alcoholism Depression Hypertension Cerebrovascular accident Sibling Family history of malignant neoplasm of breast in first degree relative Mother Thyroid condition Family history of lung cancer Other Family history of lupus erythematosus Social History Social History Social History: Surrogate medical decision maker: Del Waterman, spouse. Code status: Full code. Smoking packs per day: 2 Smoking cigarettes per day: 40.0 Years smoked: 40 Smoking pack-years: 80.00 Smoking status: Former smoker Second hand tobacco smoke exposure: Yes Additional smoking assessment comments: 2.5 ppd prior to quitting. 80 pack-year history Alcohol intake: current Drinks per week: 15 Alcohol use details: 2 drinks a day Substance use: never Other substance usage details: does not drink more than 3 whiskey shots a day Do You Feel Safe in your Home?: Yes Lack of Transportation: No Lack of Food: Never True Current Housing: I Have Housing Concerned About Future Housing: No Difficulty Paying Gas/Electric Bills: No Difficulty Paying for Meds: No Currently Unemployed: No Education: High School Diploma/GED Difficulty w/ Childcare or Family Care: No Living arrangements: with family Additional living arrangements comments: Lives with in [place]. Additional occupation/education comments: Retired. Spiritual care concerns: No Meds Home Medications and Allergies Home Medications Medication Instructions Recorded Confirmed Type triamterene 37.5 1 cap PO DAILY #90 caps 08/11/23 02/15/24 Rx mg-hydrochlorothiazide 25 mg capsule cholecalciferol (vitamin D3) 50 50 mcg PO DAILY 09/16/23 02/15/24 History mcg (2,000 unit) capsule nebivolol 10 mg tablet (Bystolic) 5 mg PO DAILY #45 tabs 11/23/23 02/15/24 Rx atorvastatin 40 mg tablet 40 mg PO QHS #90 tabs 01/17/24 02/15/24 Rx omeprazole 20 mg capsule,delayed 20 mg PO DAILY #90 caps 02/01/24 02/15/24 Rx release Allergies Allergy/AdvReac Type Severity Reaction Status Date / Time No Known Allergies Allergy Verified 02/15/24 10:28 Vital Signs Vital Signs - 24 hr 02/15/24 16:00 02/15/24 20:04 02/15/24 20:00 Temperature 36.3 C L Pulse Rate 102 H 90 Respiratory Rate 16 Blood Pressure 117/66 Pulse Oximetry 94 Oxygen Delivery Room Air 02/16/24 01:05 02/16/24 01:20 02/16/24 02:20 Temperature 36.9 C 36.8 C 36.9 C Pulse Rate 97 100 70 Respiratory Rate 16 16 16 Blood Pressure 120/73 120/69 103/69 Pulse Oximetry 95 94 94 Oxygen Delivery 02/16/24 03:20 02/16/24 03:54 02/16/24 03:48 Temperature 36.5 C 36.9 C 36.9 C Pulse Rate 77 78 78 Respiratory Rate 14 16 16 Blood Pressure 125/68 128/88 128/88 Pulse Oximetry 94 93 93 Oxygen Delivery 02/15/24 20:00 02/16/24 00:00 02/16/24 04:00 Temperature Pulse Rate 97 102 H 72 Respiratory Rate Blood Pressure Pulse Oximetry Oxygen Delivery 02/16/24 08:00 02/16/24 08:00 Temperature Pulse Rate 88 Respiratory Rate Blood Pressure Pulse Oximetry Oxygen Delivery Room Air Exam Narrative: awake alert cooperative in no obvious acute distress head normocephalic ear nose throat exam normal neck is supple heart regular lungs clear abdomen soft neurological examination revealed normal mental status normal speech cranial exam is normal general motor exam with the deconditioning reflexes sluggish plantars downgoing Results Labs 02/16/24 06:49 02/16/24 06:49 Labs: Short CBC 02/15/24 02/16/24 02/16/24 Range/Units 18:14 00:15 06:49 WBC 15.2 H (4.5-10.0) K/mm3 Hgb 7.5 L 7.0 L 8.5 L (12.0-15.0) g/dL Hct 22.9 L 21.5 L 25.9 L (37.0-47.0) % Plt Count 156 (150-375) k/mm3 BMP 02/16/24 06:49 Sodium 138 Potassium 3.8 Chloride 102 Carbon Dioxide 25 BUN 15 D Creatinine 0.60 L Glucose 113 H Calcium 8.5 Liver Function 02/16/24 Range/Units 06:49 Total Bilirubin 0.6 (0.2-1.3) mg/dL AST 140 H (14-36) U/L ALT 31 (6-35) U/L Alkaline Phosphatase 182 H (38-126) U/L Albumin 3.6 (3.5-5.1) g/dL
[2024-02-16] MEDS: MEROPENEM 1 GM/NS 100 ML 1 GM/100 ML BAG IVPB ×2 (14:16→21:11)
--- NOTE | 2024-02-16 15:18 | PM.CNGS ---
Assessment and Plan Assessment and plan (1) Pancreatic cancer: Qualifiers: Pancreatic malignancy location: tail of pancreas Qualified Code(s): C25.2 - Malignant neoplasm of tail of pancreas Code(s): C25.9 - Malignant neoplasm of pancreas, unspecified Status: Acute Assessment and Plan: This is a patient with known widespread metastatic pancreatic cancer. She was also found to have an acute stroke this morning. She has been accepted to [facility] and is waiting for bed placement. There is no role for surgery at this time. If she were to deteriorate, then she would need to be emergently transferred where Surgical Oncology would be available. (2) CVA (cerebral vascular accident): Code(s): I63.9 - Cerebral infarction, unspecified Status: Acute (3) Splenic vein thrombosis: Code(s): I82.890 - Acute embolism and thrombosis of other specified veins Status: Acute (4) GI bleed: Qualifiers: GI bleed type/associated pathology: unspecified gastrointestinal hemorrhage type Qualified Code(s): K92.2 - Gastrointestinal hemorrhage, unspecified Code(s): K92.2 - Gastrointestinal hemorrhage, unspecified Status: Acute (5) Gastric varices: Code(s): I86.4 - Gastric varices Status: Acute (6) Anemia: Code(s): D64.9 - Anemia, unspecified Status: Acute Plan I have discussed the patient's case and plan of care with Dr. Mendez. History of Present Illness Consult details Consult date: 02/16/24 Reason for consult: other (Necrotizing pancreatitis) Requesting physician: Jozef Fink MD Narrative: This is a 68-year-old woman with multiple medical problems, who we have been asked to see in surgical consultation for possible necrotizing pancreatitis. She has known metastatic pancreatic cancer diagnosed in the past month at [facility]. She has recently had a Port placed in the past 1-2 weeks with plans of starting chemotherapy. She has been having dark stools for a few weeks and has developed lower abdominal pain, generalized weakness, and shortness of breath recently, which prompted evaluation in the ED yesterday. Workup revealed anemia with a hemoglobin of 6.9. CT scan of the abdomen and pelvis with IV contrast showed acute splenic infarcts, stable large cystic mass of the pancreatic tail abutting the greater curvature of the stomach, stable irregular mass of the left adrenal gland, interval progression of extensive thick metastatic disease, and new 2 cm nodular lesion at the left lung base suspicious for metastasis. She was admitted and received a blood transfusion. GI was consulted. She had an abdominal Doppler ultrasound that showed splenic vein thrombosis with spleen or gastric varices and irregular narrowing and likely reduced flow in the splenic artery as it passes the tail of the pancreas at the associated pancreatic tail lesion. She was not able to be anticoagulated due to the GI bleed. This morning, she had an acute onset of an altered mental status. This prompted a head CT that showed a left frontal lobe infarct. Brain MRI shows widespread scattered acute infarcts in the cerebrum and cerebellum. She had another repeat CT scan of the abdomen and pelvis with contrast that still showed the pancreatic cystic mass with widespread metastasis and worsening left lower lobe pulmonary nodule likely infection. The report suggested that the pancreatic mass involves the left adrenal gland and stomach wall most likely contacting necrotic pancreatitis with walled-off necrosis. Hospitalist contacted [facility] today and she was accepted in transfer, but is waiting bed placement. Our service has been consulted for possible necrotizing pancreatitis. She is seen with her at the bedside. Review of Systems Review of Systems: All systems reviewed & are unremarkable except as noted in HPI and below PMFSH Past Medical History Medical History (Updated 02/16/24 @ 16:02 by DIANA Grimaldo) Alcohol use Arthritis Elevated fasting glucose Essential (primary) hypertension GERD without esophagitis History of tobacco use 80 pack-year smoking history Hyperlipidemia Type 2 diabetes mellitus without complications Vitamin D deficiency Surgical History Surgical History History of History of colonoscopy with polypectomy (05/2022) Diverticulosis, benign colon polyp, internal hemorrhoids. History of dilation and curettage History of epidermal inclusion cyst excision History of tonsillectomy History of tubal ligation Family History Family History Father Alcoholism Depression Hypertension Cerebrovascular accident Sibling Family history of malignant neoplasm of breast in first degree relative Mother Thyroid condition Family history of lung cancer Other Family history of lupus erythematosus Social History Social History Social History: Surrogate medical decision maker: Del Waterman, spouse. Code status: Full code. Smoking packs per day: 2 Smoking cigarettes per day: 40.0 Years smoked: 40 Smoking pack-years: 80.00 Smoking status: Former smoker Second hand tobacco smoke exposure: Yes Additional smoking assessment comments: 2.5 ppd prior to quitting. 80 pack-year history Alcohol intake: current Drinks per week: 15 Alcohol use details: 2 drinks a day Substance use: never Other substance usage details: does not drink more than 3 whiskey shots a day Do You Feel Safe in your Home?: Yes Lack of Transportation: No Lack of Food: Never True Current Housing: I Have Housing Concerned About Future Housing: No Difficulty Paying Gas/Electric Bills: No Difficulty Paying for Meds: No Currently Unemployed: No Education: High School Diploma/GED Difficulty w/ Childcare or Family Care: No Living arrangements: with family Additional living arrangements comments: Lives with in [place]. Additional occupation/education comments: Retired. Spiritual care concerns: No Meds Home Medications and Allergies Home Medications Medication Instructions Recorded Confirmed Type triamterene 37.5 1 cap PO DAILY #90 caps 08/11/23 02/15/24 Rx mg-hydrochlorothiazide 25 mg capsule cholecalciferol (vitamin D3) 50 50 mcg PO DAILY 09/16/23 02/15/24 History mcg (2,000 unit) capsule nebivolol 10 mg tablet (Bystolic) 5 mg PO DAILY #45 tabs 11/23/23 02/15/24 Rx atorvastatin 40 mg tablet 40 mg PO QHS #90 tabs 01/17/24 02/15/24 Rx omeprazole 20 mg capsule,delayed 20 mg PO DAILY #90 caps 02/01/24 02/15/24 Rx release Allergies Allergy/AdvReac Type Severity Reaction Status Date / Time No Known Allergies Allergy Verified 02/15/24 10:28 Vital Signs Vital Signs - 24 hr 02/15/24 16:00 02/15/24 20:04 02/15/24 20:00 Temperature 97.4 F L Pulse Rate 102 H 90 Respiratory Rate 16 Blood Pressure 117/66 Pulse Oximetry 94 Oxygen Delivery Room Air 02/16/24 01:05 02/16/24 01:20 02/16/24 02:20 Temperature 98.4 F 98.2 F 98.4 F Pulse Rate 97 100 70 Respiratory Rate 16 16 16 Blood Pressure 120/73 120/69 103/69 Pulse Oximetry 95 94 94 Oxygen Delivery 02/16/24 03:20 02/16/24 03:54 02/16/24 03:48 Temperature 97.7 F 98.4 F 98.4 F Pulse Rate 77 78 78 Respiratory Rate 14 16 16 Blood Pressure 125/68 128/88 128/88 Pulse Oximetry 94 93 93 Oxygen Delivery 02/15/24 20:00 02/16/24 00:00 02/16/24 04:00 Temperature Pulse Rate 97 102 H 72 Respiratory Rate Blood Pressure Pulse Oximetry Oxygen Delivery 02/16/24 08:00 02/16/24 08:00 02/16/24 14:17 Temperature 98.6 F Pulse Rate 88 100 Respiratory Rate 16 Blood Pressure 125/86 Pulse Oximetry 92 Oxygen Delivery Room Air Exam Const: General: ill appearing acutely Nutritional Appearance: average body habitus Orientation/consciousness: patient oriented x3 HENMT: Head: normocephalic and atraumatic Ears: hearing grossly normal bilaterally Mouth: Yes moist mucous membranes Eyes: General: appearance normal, both eyes and all related structures Pupils: Equal, round and reactive pupils present Neck: Neck: normal visual inspection Resp: Effort & Inspection: no respiratory distress Auscultation: clear to auscultation bilaterally Cardio: Rate: regular rate Rhythm: regular rhythm Peripheral pulses: Peripheral pulses 2+ throughout GI: Inspection: non-distended, scar (lower midline scar) and no visible herniation GI Palp: Yes Soft to palpation, Yes Tenderness to palpation present (GI) (diffusely tender), No Guarding due to palpation present (GI) and No Rebound tenderness present Percussion: Yes normal to percussion Auscultation: normal bowel sounds Skin: General skin exam: normal color Neuro: General: moves all extremities and no focal motor deficits Speech: normal speech Extrem: General: normal to inspection and no edema Psych: Mental Status: mental status grossly normal Attitude: cooperative Insight: Fair insight present (Psych) Judgement: Fair judgement present (Psych) Results Labs 02/16/24 06:49 02/16/24 06:49 Labs: Abnormal lab results 02/15/24 02/15/24 02/16/24 Range/Units 02:51 18:14 00:15 WBC (4.5-10.0) K/mm3 RBC (4.2-5.4) M/mm3 Hgb 7.5 L 7.0 L (12.0-15.0) g/dL Hct 22.9 L 21.5 L (37.0-47.0) % Immature Gran % (Auto) (0-0.5) % Neut % (Auto) (45.5-73.1) % Lymph % (Auto) (18.3-44.2) % [place] % (Auto) (2.6-8.5) % [place] # (Auto) (0.1-0.6) K/mm3 Abs Immat Gran (auto) (0.00-0.031) K/mm3 Absolute Neuts (auto) (1.3-6.7) K/mm3 Absolute Nucleated RBC (0.0-0.012) K/mm3 Nucleated RBC % (0.0-0.2) % Creatinine (0.7-1.0) mg/dL Glucose (65-110) mg/dL AST (14-36) U/L Alkaline Phosphatase (38-126) U/L Crossmatch See Detail 02/16/24 Range/Units 06:49 WBC 15.2 H (4.5-10.0) K/mm3 RBC 2.85 L (4.2-5.4) M/mm3 Hgb 8.5 L (12.0-15.0) g/dL Hct 25.9 L (37.0-47.0) % Immature Gran % (Auto) 1.6 H (0-0.5) % Neut % (Auto) 73.6 H (45.5-73.1) % Lymph % (Auto) 8.1 L (18.3-44.2) % [place] % (Auto) 14.6 H (2.6-8.5) % [place] # (Auto) 2.2 H (0.1-0.6) K/mm3 Abs Immat Gran (auto) 0.24 H (0.00-0.031) K/mm3 Absolute Neuts (auto) 11.2 H (1.3-6.7) K/mm3 Absolute Nucleated RBC 0.060 H (0.0-0.012) K/mm3 Nucleated RBC % 0.4 H (0.0-0.2) % Creatinine 0.60 L (0.7-1.0) mg/dL Glucose 113 H (65-110) mg/dL AST 140 H (14-36) U/L Alkaline Phosphatase 182 H (38-126) U/L Crossmatch Diabetes panel 02/16/24 Range/Units 06:49 Sodium 138 (137-145) mmol/L Potassium 3.8 (3.4-5.0) mmol/L Chloride 102 (98-107) mmol/L Carbon Dioxide 25 (22-30) mmol/L BUN 15 D (7-17) mg/dL Creatinine 0.60 L (0.7-1.0) mg/dL Glucose 113 H (65-110) mg/dL Calcium 8.5 (8.4-10.2) mg/dL AST 140 H (14-36) U/L ALT 31 (6-35) U/L Alkaline Phosphatase 182 H (38-126) U/L Total Protein 7.0 (6.3-8.2) g/dL Albumin 3.6 (3.5-5.1) g/dL Calcium panel 02/16/24 Range/Units 06:49 Calcium 8.5 (8.4-10.2) mg/dL Albumin 3.6 (3.5-5.1) g/dL Pituitary panel 02/16/24 Range/Units 06:49 Sodium 138 (137-145) mmol/L Potassium 3.8 (3.4-5.0) mmol/L Chloride 102 (98-107) mmol/L Carbon Dioxide 25 (22-30) mmol/L BUN 15 D (7-17) mg/dL Creatinine 0.60 L (0.7-1.0) mg/dL Glucose 113 H (65-110) mg/dL Calcium 8.5 (8.4-10.2) mg/dL Adrenal panel 02/16/24 Range/Units 06:49 Sodium 138 (137-145) mmol/L Potassium 3.8 (3.4-5.0) mmol/L Chloride 102 (98-107) mmol/L Carbon Dioxide 25 (22-30) mmol/L BUN 15 D (7-17) mg/dL Creatinine 0.60 L (0.7-1.0) mg/dL Glucose 113 H (65-110) mg/dL Calcium 8.5 (8.4-10.2) mg/dL Total Bilirubin 0.6 (0.2-1.3) mg/dL AST 140 H (14-36) U/L ALT 31 (6-35) U/L Alkaline Phosphatase 182 H (38-126) U/L Total Protein 7.0 (6.3-8.2) g/dL Albumin 3.6 (3.5-5.1) g/dL All other labs normal. Imaging Additional studies: ITS Impressions Abdomen/Pelvis CT 02/15/24 06:04 Impression: Acute splenic infarcts, new from prior exam. Large cystic mass or wall or fluid collection the pancreatic tail extensively abutting the greater curvature stomach, similar to prior exam. Stable questionable underlying hypodense pancreatic tail mass. Stable irregular mass involving the left adrenal gland, suspicious for metastasis. Interval progression of extensive hepatic metastatic disease, increased number and size of lesions. New 2 cm nodular lesion at the left lung base, suspicious for metastasis. Additional subcentimeter right basilar pulmonary nodules, as above, which could also represent metastatic lesions. Chest X-Ray 02/15/24 06:51 Impression: Clear lungs. Right-sided Mediport. 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 Irregular narrowing and possible reduced flow in the splenic artery. Head CT 02/16/24 11:04 IMPRESSION: 1. Infarct in left frontal lobe, probably acute. 2. Age-indeterminate infarcts in the cerebellum bilaterally. Abdomen/Pelvis CT 02/16/24 11:08 IMPRESSION: 1. Liver masses measuring up to 2.8 cm, worsened from 01/05/2024. Biopsy of a liver mass demonstrated abscess. 2. Worsened splenic infarcts. 3. Thick-walled cystic mass of the pancreatic tail with involvement of the left adrenal gland and stomach wall, most likely contacting necrotic pancreatitis with walled off necrosis. 4. Worsened left lower lobe pulmonary nodule, likely infection. ADDENDUM: 02/16/24 1130 Outside biopsy of the cystic pancreatic mass and a liver mass demonstrated adenocarcinoma and metastatic disease. Brain MRI 02/16/24 12:31 IMPRESSION: 1. Widespread scattered acute infarcts in the cerebrum and cerebellum. Head/Neck CTA 02/16/24 13:34 IMPRESSION: 1. Acute infarcts in the bilateral cerebellum and left frontal lobe. 2. No aneurysm or significant intracranial arterial stenosis. 3. 0% stenosis of the proximal internal carotid arteries relative to normal distal artery lumen diameters (NASCET criteria). Carotid Doppler Study 02/16/24 14:02 IMPRESSION: 1. <50% stenosis in the right internal carotid artery. 2. <50% stenosis in the left internal carotid artery.
[2024-02-17] VITALS (18 sets, daily range): BP systolic 112–136; BP diastolic 63–83; PULSE 82–125; RESP 16–32; TEMP 36.7–37.1; O2SAT 93–96
[2024-02-17] MEDS: HYDROcodone/acetaminophen (*CRX) 5-325 MG TABLET 1 TAB PO ×3 (01:59→15:20)
[2024-02-17 05:46] LABS: Alanine Aminotransferase 26 U/L (6-35); Albumin Level 3.3 g/dL (3.5-5.1); Alkaline Phosphatase 182 U/L (38-126); Anion Gap 12 mmol/L (4-12); Aspartate Amino Transferase 126 U/L (14-36); Basophils Absolute Auto 0.1 K/mm3 (0.0-0.1); Basophils Percent Auto 0.4 % (0.2-1.2); Bilirubin,Total 0.6 mg/dL (0.2-1.3); Blood Urea Nitrogen 14 mg/dL (7-17); Calcium 8.3 mg/dL (8.4-10.2); Carbon Dioxide 22 mmol/L (22-30); Chloride 106 mmol/L (98-107); Eosinophils Absolute Auto 0.1 K/mm3 (0-0.3); Eosinophils Percent Auto 0.3 % (0-4.4); Estimated CRCL calculation 72 ml/min; Estimated Glomerular Filt Rate > 60; Glucose 113 mg/dL (65-110); Hematocrit 24.5 % (37.0-47.0); Hemoglobin 7.9 g/dL (12.0-15.0); Immature Granulocyte Absolute 0.21 K/mm3 (0.00-0.031); Immature Granulocyte Percent A 1.2 % (0-0.5); Lymphocytes Percent Auto 8.4 % (18.3-44.2); Magnesium 1.9 mg/dL (1.6-2.3); Mean Corpuscular HGB Conc 32.2 g/dl (32-36); Mean Corpuscular Hemoglobin 29.7 pg (26-34); Mean Corpuscular Volume 92.1 fl (80-100); Mean Platelet Volume 10.6 fl (7.4-10.4); Monocytes Absolute Auto 2.1 K/mm3 (0.1-0.6); Monocytes Percent Auto 11.5 % (2.6-8.5); Neutrophils Absolute Auto 13.9 K/mm3 (1.3-6.7); Neutrophils Percent Auto 78.2 % (45.5-73.1); Nucleated Red Blood Cells Perc 0.4 % (0.0-0.2); Platelet Count Result 129 k/mm3 (150-375); Potassium 3.6 mmol/L (3.4-5.0); Red Blood Count 2.66 M/mm3 (4.2-5.4); Red Cell Distribution Width 15.2 % (11.5-14.5); Sodium 140 mmol/L (137-145); White Blood Count 17.8 K/mm3 (4.5-10.0)
[2024-02-17] MEDS: MEROPENEM 1 GM/NS 100 ML 1 GM/100 ML BAG IVPB ×3 (06:30→21:04)
[2024-02-17] MEDS: MORPHINE SULFATE (*CRX) 2 MG/ML INJ IV PUSH ×2 (06:40→17:45)
[2024-02-17] MEDS: SODIUM CHLORIDE 0.9% IV 1,000 ML 125 ML IV CONT ×2 (06:57→17:46)
[2024-02-17] MEDS: PANTOPRAZOLE SODIUM IV 40 MG VIAL IV PUSH (08:35)
--- NOTE | 2024-02-17 12:28 | WPDNEUROLOGY ---
Neurology EEG Report General Information Date of Study: 02/17/24 TEST Electroencephalogram DIAGNOSIS seizure disorder CONDITION OF RECORDING bedside recording EEG NUMBER [id number] CLINICAL HISTORY history of cancer pancreas admitted with altered mental status EEG DESCRIPTION the background activity consists of predominantly theta activity at 7 hertz which at times reaches up to 8 hertz to in posterior head region. Amplitude was in the range of 15-35 microvolts. There is a mild anteroposterior gradient. Patient occasionally drowsy during which attenuation of background activity was seen. Hyperventilation or photic stimulation were not performed. Occasional sharp activity was noted over left mid temporal area. Patient did not progress to stage 2 sleep. IMPRESSION This is a mild abnormal EEG due to following some 1. Mild focal sharp wave activity noted over left temporal area suggestive of nonspecific focal interictal abnormality. 2. The background activity was poorly organized and raises possibility of mild generalized encephalopathy
--- NOTE | 2024-02-17 15:41 | PM.IMPN ---
Progress Note: A&P Assessment and Plan (1) Upper abdominal pain: Code(s): R10.10 - Upper abdominal pain, unspecified Status: Acute (2) Acute blood loss anemia: Code(s): D62 - Acute posthemorrhagic anemia Status: Acute (3) Anemia: Code(s): D64.9 - Anemia, unspecified Status: Acute (4) Pancreatic cancer: Qualifiers: Pancreatic malignancy location: tail of pancreas Qualified Code(s): C25.2 - Malignant neoplasm of tail of pancreas Code(s): C25.9 - Malignant neoplasm of pancreas, unspecified Status: Acute Plan Acute Stroke Patient had altered mental status this morning about 11:[address] head showed left frontal lobe infarct likely acute MRI brain showed bilateral cerebral and cerebellar infarcts CTA head and neck, echo, EEG, carotid duplex ordered. Discussed with Dr. Gillette from Neurology and he noted since patient has GI bleed, bihemispheric infarcts she is not a candidate for [facility] therefore go ahead with the stroke workup. ECHO EF 60-65%, no valvular abnormalities, CTA head and neck unremarkable Hold aspirin due to GI bleed. Continue lipitor PT/OT neurology following Walled off Necrotizing pancreatitis Abdominal pain, resolved CT abdomen showed a bernard of necrotizing pancreatitis Blood culture ordered, p.r.n. pain control, side meropenem. General surgery eval noted clear liquid diet GI following. Gi bleed with anemia Hb 7.9 s/p 1 unit patient presented with melena stool has a metastatic pancreatic can continue Protonix Gi consulted Monitor h and h Metastatic pancreatic ca Patient newly diagnosed outpatient CT AP showed metastases to Liver, adrenal and lung Following with oncology in [facility] patient has a new port but does not know the plan New CT abdomen pelvis reviewed Patient accepted at [facility], awaiting transfer Splenic infarct CT AP showed new splenic infarct Splenic Thrombosis with splenogastric varices, with irregular narrowing and possible reduced flow in the splenic artery No anticoagulation due to GI bleed Dm2 Continue SSI with Accucheks adjust with clinical course DVT prophylaxis on SCDs, no AC due to Gi bleed Awaiting transfer to [facility] Subjective Date/time seen: 02/17/24 15:41 Interval history: Patient appears better today, denies any pain and no tenderness on palpation Review of Systems Review of Systems: All other systems were reviewed and negative except as noted in the HPI above. Exam Narrative: General: alert and comfortable Eyes: EOMI, PERRLA ENNT External ears normal, Neck is supple, no masses, Respiratory systems: Clear to auscultation Cardiovascular S1, S2, normal rhythm, no murmur, rub, or gallop; no thrill or palpable murmurs on palpation. Gastrointestinal: soft, epigastric tenderness , and non-distended abdomen with no masses; BS present Skin: no rash, lesions, ulcerations, subcutaneous nodules or induration Musculoskeletal: no abnormality and no tenderness, normal ROM Neurologic: Alert and oriented x3, non focal Mental Status Exam: normal affect Objective Data Vital Signs Vital Signs: Vital Signs - 24 hr 02/16/24 16:00 02/16/24 16:00 02/16/24 18:00 Temperature 97.9 F Pulse Rate 99 104 H 110 H Respiratory Rate 12 Blood Pressure 121/71 Pulse Oximetry 91 Oxygen Delivery Fraction of Inspired Oxygen 02/16/24 19:46 02/16/24 19:52 02/16/24 20:20 Temperature 98.9 F Pulse Rate 93 93 103 H Respiratory Rate 16 16 Blood Pressure 142/76 H Pulse Oximetry 91 96 Oxygen Delivery Room Air Fraction of Inspired Oxygen 02/16/24 22:00 02/17/24 00:00 02/17/24 00:00 Temperature Pulse Rate 107 H 107 H 107 H Respiratory Rate 16 Blood Pressure Pulse Oximetry 96 Oxygen Delivery Room Air Fraction of Inspired Oxygen 02/17/24 00:26 02/17/24 01:58 02/17/24 04:00 Temperature 98.6 F Pulse Rate 96 114 H 82 Respiratory Rate 16 Blood Pressure 126/73 Pulse Oximetry 94 Oxygen Delivery Fraction of Inspired Oxygen 02/17/24 04:00 02/17/24 04:20 02/17/24 05:42 Temperature 98.6 F Pulse Rate 82 97 97 Respiratory Rate 16 16 Blood Pressure 136/65 Pulse Oximetry 94 96 Oxygen Delivery Room Air Fraction of Inspired Oxygen 21 02/17/24 07:38 02/17/24 08:00 02/17/24 08:00 Temperature 98.1 F Pulse Rate 101 H 117 H 117 H Respiratory Rate 24 H Blood Pressure 119/63 Pulse Oximetry 93 Oxygen Delivery Room Air Fraction of Inspired Oxygen 02/17/24 10:00 02/17/24 11:50 02/17/24 12:00 Temperature 98.5 F Pulse Rate 113 H 107 H 102 H Respiratory Rate 32 H Blood Pressure 113/72 Pulse Oximetry 94 Oxygen Delivery Fraction of Inspired Oxygen 02/17/24 12:00 02/17/24 14:00 02/17/24 15:27 Temperature 98.0 F Pulse Rate 102 H 108 H 120 H Respiratory Rate 28 H Blood Pressure 112/72 Pulse Oximetry 95 Oxygen Delivery Room Air Fraction of Inspired Oxygen Intake/Output Intake/Output: Intake & Output 02/14/24 02/15/24 02/16/24 02/17/24 23:59 23:59 23:59 23:59 Intake Total 1183.3 3420.8 1100 Output Total 0 Balance 1183.3 3420.8 1100 Meds/Results Medications: Active Medications Generic Name Dose Route Start Last Admin Trade Name Freq PRN Reason Stop Dose Admin Acetaminophen 650 mg 02/15/24 06:10 02/15/24 10:27 Acetaminophen 325 Mg Tablet PO 650 mg Q4H PRN Administration Mild Pain (1-3) or Fever Hydrocodone Bitart/Acetaminophen 1 tab 02/15/24 11:36 02/17/24 15:20 Hydrocodone/Acetaminophen (*Crx) 5-325 Mg Tablet PO 1 tab Q4H PRN Administration Pain Rated 4-6 Sodium Chloride 1,000 mls @ 125 mls/hr 02/15/24 06:10 02/17/24 06:57 Normal Saline Iv IV CONT 125 mls/hr .Q8H MARCELLA Administration Meropenem 1 gm in 100 mls @ 200 mls/hr 02/16/24 13:00 02/17/24 13:01 IVPB 100 mls/hr Q8HR MARCELLA Administration Morphine Sulfate 2 mg 02/15/24 11:36 02/17/24 06:40 Morphine Sulfate (*Crx) 2 Mg/Ml Inj IV PUSH 2 mg Q4H PRN Administration Pain Rated 7-10 Ondansetron HCl 4 mg 02/15/24 06:10 02/16/24 08:23 Ondansetron Inj 4 Mg/2 Ml Vial IV PUSH 4 mg Q4H PRN Administration Nausea Pantoprazole Sodium 40 mg 02/15/24 09:00 02/17/24 08:35 Pantoprazole Sodium Iv 40 Mg Vial IV PUSH 40 mg QAM MARCELLA Administration Perflutren Lipid Microsphere 0 ml 02/16/24 12:48 Perflutren Lipid Microspheres 1.5 Ml Vial Diluted To 10 Ml Total Volume IV PUSH 02/19/24 12:49 ONCE PRN adequate visualization Protocol Radiology Results: ITS Impressions Chest X-Ray 02/15/24 06:51 Impression: Clear lungs. Right-sided Mediport. 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 Irregular narrowing and possible reduced flow in the splenic artery. Head CT 02/16/24 11:04 IMPRESSION: 1. Infarct in left frontal lobe, probably acute. 2. Age-indeterminate infarcts in the cerebellum bilaterally. Abdomen/Pelvis CT 02/16/24 11:08 IMPRESSION: 1. Liver masses measuring up to 2.8 cm, worsened from 01/05/2024. Biopsy of a liver mass demonstrated abscess. 2. Worsened splenic infarcts. 3. Thick-walled cystic mass of the pancreatic tail with involvement of the left adrenal gland and stomach wall, most likely contacting necrotic pancreatitis with walled off necrosis. 4. Worsened left lower lobe pulmonary nodule, likely infection. ADDENDUM: 02/16/24 1130 Outside biopsy of the cystic pancreatic mass and a liver mass demonstrated adenocarcinoma and metastatic disease. Brain MRI 02/16/24 12:31 IMPRESSION: 1. Widespread scattered acute infarcts in the cerebrum and cerebellum. Head/Neck CTA 02/16/24 13:34 IMPRESSION: 1. Acute infarcts in the bilateral cerebellum and left frontal lobe. 2. No aneurysm or significant intracranial arterial stenosis. 3. 0% stenosis of the proximal internal carotid arteries relative to normal distal artery lumen diameters (NASCET criteria). Carotid Doppler Study 02/16/24 14:02 IMPRESSION: 1. <50% stenosis in the right internal carotid artery. 2. <50% stenosis in the left internal carotid artery. Labs Labs: Laboratory Results - last 24 hr 02/17/24 04:57 WBC 17.8 H RBC 2.66 L Hgb 7.9 L Hct 24.5 L MCV 92.1 MCH 29.7 MCHC 32.2 RDW 15.2 H Plt Count 129 L MPV 10.6 H Immature Gran % (Auto) 1.2 H Neut % (Auto) 78.2 H Lymph % (Auto) 8.4 L [place] % (Auto) 11.5 H Eos % (Auto) 0.3 Baso % (Auto) 0.4 Lymph # (Auto) 1.50 [place] # (Auto) 2.1 H Eos # (Auto) 0.1 Baso # (Auto) 0.1 Abs Immat Gran (auto) 0.21 H Absolute Neuts (auto) 13.9 H Absolute Nucleated RBC 0.070 H Nucleated RBC % 0.4 H Sodium 140 Potassium 3.6 Chloride 106 Carbon Dioxide 22 Anion Gap 12 BUN 14 Creatinine 0.70 Estim Creat Clear Calc 72 Estimated GFR > 60 Glucose 113 H Calcium 8.3 L Magnesium 1.9 Total Bilirubin 0.6 AST 126 H ALT 26 Alkaline Phosphatase 182 H Total Protein 6.0 L Albumin 3.3 L
[2024-02-18] VITALS (13 sets, daily range): BP systolic 133–147; BP diastolic 80–98; PULSE 114–133; RESP 18–122; TEMP 36.4–36.5; O2SAT 93–98
[2024-02-18] MEDS: MORPHINE SULFATE (*CRX) 2 MG/ML INJ IV PUSH (00:19)
[2024-02-18] MEDS: SODIUM CHLORIDE 0.9% IV 1,000 ML 125 ML IV CONT (04:29)
[2024-02-18 05:02] LABS: Basophils Absolute Auto 0.1 K/mm3 (0.0-0.1); Basophils Percent Auto 0.4 % (0.2-1.2); Hematocrit 27.1 % (37.0-47.0); Hemoglobin 8.6 g/dL (12.0-15.0); Immature Granulocyte Absolute 0.76 K/mm3 (0.00-0.031); Immature Granulocyte Percent A 2.8 % (0-0.5); Immature Platelet Fraction Pct 6.4 % (0.9-11.2); Lymphocytes Absolute Auto 1.61 K/mm3 (0.9-3.2); Lymphocytes Percent Auto 5.9 % (18.3-44.2); Mean Corpuscular HGB Conc 31.7 g/dl (32-36); Mean Corpuscular Hemoglobin 29.2 pg (26-34); Mean Corpuscular Volume 91.9 fl (80-100); Mean Platelet Volume 10.7 fl (7.4-10.4); Monocytes Absolute Auto 2.5 K/mm3 (0.1-0.6); Monocytes Percent Auto 9.2 % (2.6-8.5); Neutrophils Absolute Auto 22.2 K/mm3 (1.3-6.7); Neutrophils Percent Auto 81.7 % (45.5-73.1); Nucleated Red Blood Cells Perc 0.7 % (0.0-0.2); Platelet Count Result 156 k/mm3 (150-375); Red Blood Count 2.95 M/mm3 (4.2-5.4); Red Cell Distribution Width 15.8 % (11.5-14.5); White Blood Count 27.2 K/mm3 (4.5-10.0)
[2024-02-18 05:13] LABS: Alanine Aminotransferase 28 U/L (6-35); Albumin Level 3.6 g/dL (3.5-5.1); Alkaline Phosphatase 196 U/L (38-126); Anion Gap 12 mmol/L (4-12); Aspartate Amino Transferase 131 U/L (14-36); Bilirubin,Total 1.1 mg/dL (0.2-1.3); Blood Urea Nitrogen 19 mg/dL (7-17); Calcium 8.8 mg/dL (8.4-10.2); Carbon Dioxide 22 mmol/L (22-30); Chloride 109 mmol/L (98-107); Estimated CRCL calculation 73 ml/min; Estimated Glomerular Filt Rate > 60; Glucose 141 mg/dL (65-110); Magnesium 1.9 mg/dL (1.6-2.3); Potassium 4.2 mmol/L (3.4-5.0); Sodium 143 mmol/L (137-145)
[2024-02-18] MEDS: MEROPENEM 1 GM/NS 100 ML 1 GM/100 ML BAG IVPB (05:14)
--- NOTE | 2024-02-18 07:19 | PDCODEBLUE ---
Code Blue Note Code Blue Note Time Arrived at Code Blue: 0710 Cardiac Rhythm Post Code: 0710 Rapid response called followed by code blood Patient given less than 10 compressions before starting to moan, SpO2 60%, being bagged with 100% FiO2 0718 ST upon arrival to ICU ED attended to intubate patient due to her being unable to protect airway 0726 time out and demetri and tolerate given 0728 23 cm at the lips 7.5 ETT, good color change, bilateral breath sounds 0730 ST 135, SpO2 87% 117/75, OG placed, xray at bedside [address] to hospital, will withdraw care upon arrival, will not escalate care, patient will remain intubated until family is ready time of 9:22 a.m.
[2024-02-18] MEDS: ROCURONIUM BROMIDE 50 MG/5 ML VIAL 70 MG IV PUSH (07:26)
[2024-02-18] MEDS: ETOMIDATE 20 MG/10 ML AMPUL 30 MG IV PUSH (07:26)
--- NOTE | 2024-02-18 07:36 | ED.PROCEDURE ---
Procedures Intubation Intubation Date: 02/18/24 Intubation Time: 07:25 Consent: Implied emergent for airway protection Sedative: etomidate Mg given: 30 Paralytic: rocuronium Mg given: 70 Laryngoscope: Efraín ET tube size: 7.5 Tube secured depth (cm): 23 Tube secured location: lips Tube placement confirmation: visualized tube passing through cords, equal breath sounds bilaterally and confirmation by capnometry Patient tolerated procedure: well and no complications Additional comments: initially confirmed full code status via telephone with on the phone per RN. Post intubation, patient does briefly desaturate when initially applying the ventilator. [id number] applied and her oxygen saturations improved again with appropriate waveform. Chest x-ray performed which does show ETT is slightly high in the ron however her neck is hyper flexed at the time.
[2024-02-18] MEDS: MIDAZOLAM HCL (*CRX) 2 MG/2 ML VIAL IV PUSH (07:40)
[2024-02-18] MEDS: FENTANYL 2,500MCG/NS250ML(*CRX 2,500 MCG/250 ML BAG IV CONT (07:48)
[2024-02-18] MEDS: MIDAZOLAM 100MG/NS 100ML(*CRX) 100 MG/100 ML BAG IV CONT (07:49)
[2024-02-18 08:00] LABS: Glucose Point of Care 170 mg/dl (65-105)
[2024-02-18] MEDS: LORazepam INJ (*CRX) 2 MG/ML VIAL IV PUSH (09:10)
[2024-02-18] MEDS: MORPHINE SULFATE INJ (*CRX) 10 MG/ML AMP 5 MG IV PUSH (09:10)
--- NOTE | 2024-02-18 10:48 | P.CONIN_ITS ---
Assessment and Plan Assessment and plan (1) CVA (cerebral vascular accident): Code(s): I63.9 - Cerebral infarction, unspecified Status: Acute (2) Pancreatic cancer: Qualifiers: Pancreatic malignancy location: tail of pancreas Qualified Code(s): C25.2 - Malignant neoplasm of tail of pancreas Code(s): C25.9 - Malignant neoplasm of pancreas, unspecified Status: Acute (3) Acute respiratory failure: Code(s): J96.00 - Acute respiratory failure, unspecified whether with hypoxia or hypercapnia Status: Acute Plan Patient has a malignant pancreatic cancer with widespread metastasis. Patient now also has multiple bilateral strokes. Patient also has now acute respiratory failure and was on mechanical ventilation. I evaluated examined the patient adjusted the ventilator. And review chest x-ray. By this time patient's family including her and son arrived. They were notified during the code blue event when patient was intubated. They do not feel the patient would want to continue on ventilator support considering her metastatic cancer and multiple strokes. I updated them with patient's current condition, treatment plan, expected prognosis and different potential outcomes. They have decided, in accordance with pt's wishes, to discontinue all medical therapy and institute comfort measures only. I have explained to them that I will use opioids, anxiolytics and other agents on as needed basis to promote comfort and discontinue all medical therapy, lab testing and invasive monitoring. Patient will eventually They verbalized understanding and agreed to proceed Hospitalist also aware of plan for comfort care Total time spent 30 minutes Equal Opportunity Representative Consult Note Consult date: 02/18/24 Reason for consult: Acute respiratory failure HPI: Crystal Waterman is a 68 year old female with past medical history of EtOH use, arthritis, GERD, HLD, diabetes, vitamin-D deficiency, colon polyps, diverticulosis, internal hemorrhoids, tubal ligation, and recent diagnosis of pancreatic cancer with metastasis was admitted from ER room on 02/15/2024 with complaints of shortness of breath, weakness, and black stools. She was diagnosed with GI bleed and was given PRBC transfusion CT scan at that time showed metastatic disease of liver adrenal and lung. EEG was done which showed mild sharp focal wave activity in left temporal area. Brain MRI showed Widespread scattered acute infarcts in the cerebrum and cerebellum. Patient was on step-down unit and gradually patient's mental status worsened along with poor respiratory status. Early this morning patient had a code blue event where patient was unresponsive agonal breathing box and unable to protect her airway. She she did not lose a pulse or receive CPR. Patient was emergently intubated and transferred to ICU. Family was notified On my evaluation on patient's arrival to ICU patient was intubated sedated with etomidate and rocuronium that she had received. Review of Systems Review of Systems: ROS unobtainable: Yes unobtainable due to endotracheal tube, unobtainable due to medical condition and unobtainable due to mental status [facility] Past Medical History Medical History Alcohol use Arthritis Elevated fasting glucose Essential (primary) hypertension GERD without esophagitis History of tobacco use 80 pack-year smoking history Hyperlipidemia Type 2 diabetes mellitus without complications Vitamin D deficiency Surgical History Surgical History History of History of colonoscopy with polypectomy (05/2022) Diverticulosis, benign colon polyp, internal hemorrhoids. History of dilation and curettage History of epidermal inclusion cyst excision History of tonsillectomy History of tubal ligation Family History Family History Father Alcoholism Depression Hypertension Cerebrovascular accident Sibling Family history of malignant neoplasm of breast in first degree relative Mother Thyroid condition Family history of lung cancer Other Family history of lupus erythematosus Social History Social History Social History: Surrogate medical decision maker: Del Waterman, spouse. Code status: Full code. Smoking packs per day: 2 Smoking cigarettes per day: 40.0 Years smoked: 40 Smoking pack-years: 80.00 Smoking status: Former smoker Second hand tobacco smoke exposure: Yes Additional smoking assessment comments: 2.5 ppd prior to quitting. 80 pack-year history Alcohol intake: current Drinks per week: 15 Alcohol use details: 2 drinks a day Substance use: never Other substance usage details: does not drink more than 3 whiskey shots a day Do You Feel Safe in your Home?: Yes Lack of Transportation: No Lack of Food: Never True Current Housing: I Have Housing Concerned About Future Housing: No Difficulty Paying Gas/Electric Bills: No Difficulty Paying for Meds: No Currently Unemployed: No Education: High School Diploma/GED Difficulty w/ Childcare or Family Care: No Living arrangements: with family Additional living arrangements comments: Lives with in [place]. Additional occupation/education comments: Retired. Spiritual care concerns: No Meds Home Medications and Allergies Home Medications Medication Instructions Recorded Confirmed Type triamterene 37.5 1 cap PO DAILY #90 caps 08/11/23 02/15/24 Rx mg-hydrochlorothiazide 25 mg capsule cholecalciferol (vitamin D3) 50 50 mcg PO DAILY 09/16/23 02/15/24 History mcg (2,000 unit) capsule nebivolol 10 mg tablet (Bystolic) 5 mg PO DAILY #45 tabs 11/23/23 02/15/24 Rx atorvastatin 40 mg tablet 40 mg PO QHS #90 tabs 01/17/24 02/15/24 Rx omeprazole 20 mg capsule,delayed 20 mg PO DAILY #90 caps 02/01/24 02/15/24 Rx release Allergies Allergy/AdvReac Type Severity Reaction Status Date / Time No Known Allergies Allergy Verified 02/15/24 10:28 Vital Signs Vital Signs - 24 hr 02/17/24 11:50 02/17/24 12:00 02/17/24 12:00 Temperature 36.9 C Pulse Rate 107 H 102 H 102 H Respiratory Rate 32 H Blood Pressure 113/72 Pulse Oximetry 94 Oxygen Delivery Room Air Fraction of Inspired Oxygen 02/17/24 14:00 02/17/24 15:27 02/17/24 16:00 Temperature 36.7 C Pulse Rate 108 H 120 H 103 H Respiratory Rate 28 H Blood Pressure 112/72 Pulse Oximetry 95 Oxygen Delivery Fraction of Inspired Oxygen 02/17/24 18:00 02/17/24 19:34 02/17/24 20:00 Temperature 37.1 C Pulse Rate 103 H 105 H 125 H Respiratory Rate 23 H Blood Pressure 131/83 Pulse Oximetry 93 Oxygen Delivery Fraction of Inspired Oxygen 02/17/24 20:00 02/17/24 22:00 02/18/24 00:00 Temperature Pulse Rate 125 H 114 H 122 H Respiratory Rate 23 H Blood Pressure Pulse Oximetry 93 Oxygen Delivery Room Air Fraction of Inspired Oxygen 21 02/18/24 00:00 02/18/24 01:09 02/18/24 01:54 Temperature 36.5 C Pulse Rate 114 H 123 H 118 H Respiratory Rate 122 H 23 H Blood Pressure 138/80 Pulse Oximetry 93 94 Oxygen Delivery Room Air Fraction of Inspired Oxygen 21 02/18/24 04:13 02/18/24 04:00 02/18/24 04:00 Temperature 36.4 C Pulse Rate 127 H 128 H 129 H Respiratory Rate 22 H 22 H Blood Pressure 133/90 Pulse Oximetry 95 95 Oxygen Delivery Room Air Fraction of Inspired Oxygen 21 02/18/24 06:00 02/18/24 07:37 02/18/24 07:48 Temperature Pulse Rate 118 H 120 H Respiratory Rate 18 Blood Pressure Pulse Oximetry Oxygen Delivery Fraction of Inspired Oxygen 100 02/18/24 07:49 02/18/24 07:51 02/18/24 07:57 Temperature Pulse Rate 120 H 120 H 120 H Respiratory Rate 18 18 Blood Pressure Pulse Oximetry 95 Oxygen Delivery Room Air Fraction of Inspired Oxygen 100 02/18/24 08:00 02/18/24 08:00 02/18/24 08:00 Temperature Pulse Rate 133 H 133 H Respiratory Rate 18 18 Blood Pressure 147/98 H Pulse Oximetry 98 Oxygen Delivery Fraction of Inspired Oxygen 100 02/18/24 08:00 02/18/24 07:30 02/18/24 09:10 Temperature Pulse Rate 133 H 118 H 123 H Respiratory Rate 18 19 Blood Pressure Pulse Oximetry 98 Oxygen Delivery Mechanical Ventilation Fraction of Inspired Oxygen 100 02/18/24 09:10 Temperature Pulse Rate 122 H Respiratory Rate 19 Blood Pressure Pulse Oximetry Oxygen Delivery Fraction of Inspired Oxygen Exam Narrative: General: Pt is sedated, intubated and on mechanical ventilation Lungs/Chest: Trachea central Coarse BS B/L, wheezing right more than left Cardiac: RRR. Normal S1 S2. No murmurs Circulation: Pedal pulses are intact and symmetrical. Abdomen: Decreased bowel sounds. Obese. Soft. NT. ND. Extremities: No clubbing, cyanosis or edema. Warm : Em in place Neurologic: Unable to assess due to sedation. No response to painful stimuli. PERRL Results Labs 02/18/24 04:48 02/18/24 04:48 Labs: Short CBC 02/18/24 Range/Units 04:48 WBC 27.2 H (4.5-10.0) K/mm3 Hgb 8.6 L (12.0-15.0) g/dL Hct 27.1 L (37.0-47.0) % Plt Count 156 (150-375) k/mm3 BMP 02/18/24 04:48 Sodium 143 Potassium 4.2 Chloride 109 H Carbon Dioxide 22 BUN 19 H Creatinine 0.70 Glucose 141 H Calcium 8.8 Liver Function 02/18/24 Range/Units 04:48 Total Bilirubin 1.1 (0.2-1.3) mg/dL AST 131 H (14-36) U/L ALT 28 (6-35) U/L Alkaline Phosphatase 196 H (38-126) U/L Albumin 3.6 (3.5-5.1) g/dL Hospitalist MIPS Advance Care Plan I have confirmed that the patient's Advanced Care Plan is present, code status is documented, or surrogate decision maker is listed in patient medical record.: Yes Medication Reconciliation I have utilized all available resources to obtain, update and review the patients current medications (includes all prescriptions, OTC, herbals, cannabis, and nutritional supplements).: Yes
--- NOTE | 2024-02-18 11:04 | PM.DDS ---
Discharge Summary Date and Time Date of : 02/18/24 Time of : 09:22 Provider Pronounced By: 2 RNs Name of First RN That Pronounced: Chanelle Azar RN Name of Second RN That Pronounced: Magda Hogue RN Probable Cause of Probable Cause of : Stroke gastrointestinal bleed Metastatic pancreatic cancer ACute hypoxemic respiratory arrest Splenic infarct Walled of necrotizing pancreatitis Summary Hospital Course: This is a pleasant female with a past medical surgical history of EtOH use, arthritis, GERD, HLD, diabetes, vitamin-D deficiency, colon polyps, diverticulosis, internal hemorrhoids, tubal ligation, and recent diagnosis of pancreatic cancer with metastasis she presented to the ER room 02/15/2024 with complaints of shortness of breath, weakness, and black stools. patient reported she has been having dark stools for the a few weeks, she also reported upper abd pain. Stated she has been having worsening gen weakness and SOB which prompted her to present to the ER for proper eval and care. She was diagnosed of metastatic pancreatic cancer and noted she follows oncologist in [place] however she does not know the plan but has a port. Denies any fever, diarrhea, chest pain, leg swelling or vomiting. vital signs stable. hb in the ER was hb 6.4 s/p 1unit pRBC with Hb 7.9. GI consulted. However the next day patient complained abd pain and was also noted have AMS. CT AP and and CT head showed walled-off necrotizing pancreatitis, within left frontal lobe infarcts. MRI was obtained which showed a bilateral cerebral and cerebellar stroke. Neurology was promptly consulted and noted a bit since patient has a GI bleed with bihemispheric infarcts and metastatic cancer she is not a candidate for TNK. Patient was started on Lipitor, CTA head and neck was unremarkable. Echo showed EF 60-65% and no valvular abnormalities. Patient received 1 unit of PRBC, GI plan for EGD prior to degeneration. Following a diagnosis of stroke patient was transferred to IMU, initially was NPO and placed on meropenem and IV fluid. The next day patient noted abd pain has markedly improved, was started on clear fluids. I discussed with [facility] hospitalist team and they accepted patient since her cancer care is domiciled over there. however this morning patient went into respiratory arrest and was transferred to the ICU adn intubated. However family decided to transition to comfort care. Patient was placed on Comfort care and she at 09. Family were informed. Topical care prior to respiratory failure this morning. Plan Acute Stroke Patient had altered mental status this morning about 11:[address] head showed left frontal lobe infarct likely acute MRI brain showed bilateral cerebral and cerebellar infarcts CTA head and neck, echo, EEG, carotid duplex ordered. Discussed with Dr. Gillette from Neurology and he noted since patient has GI bleed, bihemispheric infarcts she is not a candidate for T N K therefore go ahead with the stroke workup. ECHO EF 60-65%, no valvular abnormalities, CTA head and neck unremarkable Hold aspirin due to GI bleed. Continue lipitor PT/OT neurology following Walled off Necrotizing pancreatitis Abdominal pain, resolved CT abdomen showed a bernard of necrotizing pancreatitis Blood culture ordered, p.r.n. pain control, side meropenem. General surgery eval noted clear liquid diet GI following. Gi bleed with anemia Hb 7.9 s/p 1 unit patient presented with melena stool has a metastatic pancreatic can continue Protonix Gi consulted Monitor h and h Metastatic pancreatic ca Patient newly diagnosed outpatient CT AP showed metastases to Liver, adrenal and lung Following with oncology in [facility] patient has a new port but does not know the plan New CT abdomen pelvis reviewed Patient accepted at [facility], awaiting transfer Splenic infarct CT AP showed new splenic infarct Splenic Thrombosis with splenogastric varices, with irregular narrowing and possible reduced flow in the splenic artery No anticoagulation due to GI bleed Dm2 Continue SSI with Accucheks adjust with clinical course Additional Data Confirmation of as documented by pronouncing clinician: Pupillary Reflex, Palpable Pulses, Response to Stimuli, Heart Tones and Breath Sounds Name of Provider Notified: Dr. Gilbert, Dr. Fink Time Provider Notified: 09:22 Provider Requests Autopsy: No Photographer Model Notified: Yes Date [facility] Notified of : 02/18/24 Time [facility] Notified of : 09:36
== END 2024-02-18 09:22 | disposition expired | DRG 64 ==
LOC: ANHED 06:11 → ANH3MED 06:48 → ANHIMU 02-16 13:02 → ANHICU 02-21 11:03 → ANHIMU 02-21 11:03
PROVIDERS: Nurse Practitioner Family; Admitting Provider Internal Medicine; Emergency Provider Emergency Medicine; PCP Family Medicine; Visit Provider Internal Medicine
DX: I63.9 Cerebral infarction, unspecified (principal); J96.00 Acute respiratory failure, unspecified whether with hypoxia or hypercapnia; K92.2 Gastrointestinal hemorrhage, unspecified; C25.2 Malignant neoplasm of tail of pancreas; C78.7 Secondary malignant neoplasm of liver and intrahepatic bile duct; E87.1 Hypo-osmolality and hyponatremia; D62 Acute posthemorrhagic anemia; D73.5 Infarction of spleen; I10 Essential (primary) hypertension; I86.4 Gastric varices; E55.9 Vitamin D deficiency, unspecified; E11.9 Type 2 diabetes mellitus without complications; K21.9 Gastro-esophageal reflux disease without esophagitis; M19.90 Unspecified osteoarthritis, unspecified site; F10.10 Alcohol abuse, uncomplicated; Z87.891 Personal history of nicotine dependence; Z86.0101 Personal history of adenomatous and serrated colon polyps
CPT/HCPCS: 36415; 36430; 36600; 70450; 70496; 70498; 70553; 71046; 74177; 76705; 80053; 82728; 82948; 83540; 83550; 83735; 85014; 85018; 85025; 85055; 85610; 86850; 86900; 86901; 86923; 87040; 92950; 93005; 93306; 93880; 94002; 95816; 96374; 96375; 96376; 99285; A9270; A9577; G0378; J2060; J2185; J2250; J2270; J2405; J2470; J3010; J7030; J7050; P9016; Q9967